=== PATIENT | male | born 1950 | race Caucasian/White ===

== ENCOUNTER 2017-05-22 09:59 | Inpatient (IN) | payer MEDICARE, OTHER, SELFPAY ==
[2017-05-22] VITALS (11 sets, daily range): BP systolic 134–200; BP diastolic 94–113; PULSE 84–139; RESP 16–24; TEMP 36.4–36.9; O2SAT 95–99; BMI 31.1; BMI 30.1
--- NOTE | 2017-05-22 10:23 | ED.DCSUM_ITS ---
- ER Visit Summary Date of Service: 05/22/17 Chief Complaint: Vertigo History of Present Illness: The patient is a 67 M who states that he was seen here yesterday after developing a sense of the room spinning upon getting out of bed. He noted vomiting. In the emergency department he had EKG, blood work , and a head CT of which those were essentially negative. He was treated with Antivert and Zofran and fluids and felt better. He was prescribed lisinopril in addition to Benicar for uncontrolled hypertension. It is unclear the line of thinking for this combination. He was referred to primary care as he is currently in transition from moving to [place] from [place]. Patient states he went home last night and his vertigo continued. He states he no longer has a headache. He states that laying flat is better but any type of movement makes him vomit. Physical Examination: 171/103 otherwise afebrile and stable Gen: Well-nourished well-developed patient appears quite nauseous holding an emesis bag Head: Normocephalic atraumatic Eyes: Perrl EOMI ENT: TMs clear no rhinorrhea moist mucous membranes Neck: Supple no lymphadenopathy no JVD nontender CVS: Regular rate rhythm no murmurs normal S1-S2 Respiratory: No distress clear to auscultation bilaterally chest nontender Abdomen: Soft nontender nondistended normal bowel sounds no masses Back: Nontender Extremity: Nontender no edema Skin: Normal color no rash Neuro: alert orientated ?3 CN II-XII intact normal strength sensation reflexes patient has nystagmus with fast component to the left Psych: Normal affect normal mood Test Results: Emergency Department Course and Treatment:Patient received a p.o. dose of IV fluids Valium and Zofran. He also received a dose of Norvasc. His blood pressure has improved down to 150/90 and symptomatically he was feeling better laying in the bed. However on exam the patient still has nystagmus has difficulty keeping his eyes open. I ambulate him and he ran into the wall on his way to the bathroom. We placed him back into the room I gave additional Valium. Basic labs are negative. Because less than 24 hours ago he had a head CT and EKG I did not repeat these. The patient will be admitted. Impression: 1. Vertigo 2. Uncontrolled hypertension This note was generated with [employer] dictation software. It may contain incorrect words, spelling, and punctuation that were not noted in review of the chart prior to signing ED Disposition - Plan for ED Patient: Chief Complaint: Dizziness Referrals: Care Physician,No Primary [Primary Care Provider] -
[2017-05-22] MEDS: diazePAM 5 MG Tablet PO ×2 (10:40→14:00)
[2017-05-22] MEDS: 0.9% Normal Saline 1,000 ML 1000 ML IV (10:40)
[2017-05-22] MEDS: Ondansetron 4 MG/2 ML Vial IV ×2 (10:40→17:28)
[2017-05-22] MEDS: amLODIPine 5 MG Tablet PO ×2 (12:12→23:51)
[2017-05-22 14:41] LABS: Absolute Lymphocyte Count 1.31 X10^3/ul (0.83-4.51); Absolute Neutrophil Count 6.8 X10^3/uL (2.0-7.7); Basophil# 0.05 X10^3/uL; Basophil% 0.6 % (0-1); Eosinophil# 0.08 X10^3/uL; Eosinophils% 0.9 % (0-5); Hematocrit 43.7 % (40-54); Hemoglobin 14.4 g/dl (13.0-16.5); Lymphocyte # 1.31 X10^3/ul (4.0); Lymphocyte % 14.8 % (19-41); Mean Corpuscular Hgb 30.2 pg (27.0-32.0); Mean Corpuscular Volume 91.6 fL (80-94); Mean Platelet Vol. 10.8 fl (6.2-12.0); Monocyte# 0.55 X10^3/uL; Monocyte% 6.2 % (0-10); Neutrophil # 6.84 X10^3/uL (2.7-7.7); Neutrophil % 77.4 % (47-70); POSITIVE COUNT NO; POSITIVE DIFFERENTIAL NO; POSITIVE MORPHOLOGY NO; Platelet Count 263 K/mm3 (150-450); RBC Distribution Width CV 13.6 % (11.6-14.6); RBC Distribution Width SD 45.1 fl (35.1-43.9); Red Blood Count 4.77 M/mm3 (4.6-6.2); White Blood Count 8.8 K/mm3 (4.4-11.0)
[2017-05-22 14:56] LABS: AST(SGOT) 15 U/L (15-37); Alanine Aminotransfer ALT/SGPT 21 U/L (12-78); Albumin, Serum 3.5 g/dL (3.4-5.0); Alkaline Phosphatase 80 U/L (45-117); Anion Gap 10 (5-15); BUN 15 mg/dL (7-18); BUN/Creat Ratio 17.9 RATIO (10-20); Calcium,Total 8.1 mg/dL (8.5-10.1); Chloride 109 mmol/L (98-107); Creatinine, Serum 0.84 mg/dL (0.70-1.30); EST Glomerular Filtration Rate 97 mL/min (>60); Est Glom Filt Rate - Afr Amer 118 mL/min (>60); Estimated Creatinine Clearance 88.11 ml/min; Globulin 3.6 g/dL (2.2-4.2); Glucose 81 mg/dL (70-110); Potassium 3.6 mmol/L (3.5-5.1); Protein, Total 7.1 g/dL (6.4-8.2); Sodium Level 142 mmol/L (136-145)
--- NOTE | 2017-05-22 16:02 | NURSING ---
MED SURG OBS VERTIGO IMAMURA
--- NOTE | 2017-05-22 16:36 | MRI_ITS ---
STUDY: MRI BRAIN WITHOUT CONTRAST REASON FOR EXAM: Male, 67 years old. Vertigo and hypertension TECHNIQUE: Standardized multiplanar fat and water weighted pulse sequences were obtained. COMPARISON: None. FINDINGS: Normal size of the ventricles and extra-axial spaces for the patient's age. Mild periventricular white matter ischemic changes without mass effect or restricted diffusion.. There are chronic ischemic changes within the right internal capsule anterior limb and left internal capsule at the genu. Normal bilateral basal ganglia. Normal thalami. There is no extra-axial fluid accumulation. Normal flow voids within the major intracranial circulation suggesting patency by spin echo criteria. Left vertebrobasilar dolichoectasia consistent with clinical history of hypertension.. The right vertebral is atrophic terminating in PICA Normal sella turcica, pituitary gland, infundibular stalk, optic chiasm and hypothalamus. Normal tectal plate and pineal gland. Normal midbrain, juan and medulla. There are acute ischemic changes within the right inferior cerebellar hemisphere Normal basal cisterns. Normal bilateral temporal bones. Normal bilateral internal auditory canals. No demonstrated orbital abnormality, within the constraints of a routine brain study. Minor mucosal thickening in the maxillary and ethmoid sinuses.. Normal calvarium and skull base. Normal visualized soft tissue structures. Normal visualized upper cervical spine. MRI/Brain without Contrast IMPRESSION: Acute ischemic infarction in the right inferior cerebellar hemisphere. Atrophy and periventricular white matter ischemic changes. Old bilateral lacunar infarcts. Electronically Signed: Beto Cruz MD at 20:28 EST , Service support ,
--- NOTE | 2017-05-22 19:06 | PCM.HP.STD ---
Problem List (1) Vertigo Status: Acute (2) Essential hypertension, benign Status: Acute (3) Intractable nausea and vomiting Status: Acute History of Present Illness Date of Admission: 05/22/17 Chief Complaint: dizziness, nausea, and vomiting. Patient is a 67 years old male who presents to ED with complaining of nausea/vomiting with dizziness for 2 days. He was seen on 05/21/17, sent home with oral Zofran but returned with persisting symptoms. He has the symptoms for 2 days, with dizziness with tilting sensation. He is doing well when he is in supine position, but symptoms worsens when he is upright. He was not able to walk with severe nausea. He is having double vision persistently, but symptoms of dizziness appears intermittent and associated with head position. CT of head was negative on 05/21. He has mild decrease in hearing, but it is unchanged. He denied of any tinnitus or headache. Past Medical History Allergies carbamazepine [From Tegretol] Allergy (Verified 05/22/17 15:33) HIGH FEVER AND RASH Home Medications: Ambulatory Orders Medication Instructions Recorded Olmesartan Medoxomil [Benicar] 40 mg PO DAILY 05/21/17 Ondansetron [Zofran Odt] 4 mg PO Q8H PRN PRN #10 tablet 05/21/17 Cholecalciferol (Vitamin D3) 3,000 unit PO DAILY 05/22/17 [Vitamin D3] Lisinopril [Prinivil] 10 mg PO DAILY 05/22/17 Magnesium Oxide [Magnesium] 400 mg PO DAILY 05/22/17 Multivitamin [Daily Multiple 1 each PO DAILY 05/22/17 Vitamin] Tadalafil [Cialis] 5 mg PO DAILY PRN 05/22/17 Surgical History: no surgical history Smoking Status: Never smoker Alcohol: None Drugs: None - *Family History Maternal History Items: No pertinent history Review of Systems Comment: ROS: In general: Patient has been in good health, denied of any constitutional symptoms, such as weight loss, or gain, fever, chills, or night sweats. Patient denied of any profound fatigue. HEENT: Unremarkable. Patient denied of any dizziness, chronic headache, blurred vision, double vision, dry mouth, or nasal congestion. CV/respiratory: There is no exertional shortness of breath, chest pain, palpitation, wheezing, cough, claudication, cold feet, or peripheral edema. GI: Patient denied any abdominal pain, nausea, vomiting, diarrhea, constipation, melena, or hematochezia. : Patient denied any significant urinary symptoms. Neurology: See HPI. No history of stroke or seizure. Psychological: Unremarkable. ?. Endocrine: Unremarkable. Musculoskeletal: Unremarkable. VTE Information - Inpt Only VTE Present on Admission: No VTE Mechan Device Prophylaxis: None VTE Pharm Prophylaxis ordered?: Yes Patient Problems: Active and Suspected Problems Vertigo (Acute) Essential hypertension, benign (Acute) Intractable nausea and vomiting (Acute) Objective: In general, patient is a well-nourished and developed adult. HEENT: Head is atraumatic, and normocephalic. Pupils are equal, round, and reactive to light and accommodations. Neck is supple. There is no lymphadenopathy, or thyromegaly. Oral mucosa is pink, and moist. There are no lesions. +nystagmus with lateral gaze. Heart: Auscultation is normal with regular rhythm and rate. There is no extra heart sounds, or murmurs. S1 and S2 are present. Point of maximal impulse is not displaced. Lungs: Lungs are clear to auscultation bilaterally. There is no wheezing, or crackles. Abdomen: Abdominal wall is non-tender, and non-distended. There is no palpable mass or organomegaly. Normoactive bowel sounds are present. Extremities: There is no cyanosis or clubbing. Peripheral pulses are palpable. There is no edema. Skin: There are no any skin discoloration or lesions. Neurological: CN II - XII are intact. Sensory and motor functions are grossly normal with no obvious deficit. Cerebellar functions are within normal range. Gait was not tested. - Physical Exam Vital Signs Temp Pulse Resp BP Pulse Ox 97.6 F L 95 16 168/97 H 97 05/22/17 16:46 05/22/17 17:47 05/22/17 16:46 05/22/17 16:46 05/22/17 16:46 Oxygen Delivery Method Room Air Weight: 212 lb 15.465 oz Body Mass Index (BMI) 30.1 Assessment/Plan Active and Suspected Problems Vertigo (Acute) Essential hypertension, benign (Acute) Intractable nausea and vomiting (Acute) Patient is a 67 years old male who presents to ED with complaining of nausea/vomiting with dizziness for 2 days. He was seen on 1/16/18, sent home with oral Zofran but returned with persisting symptoms. He has the symptoms for 2 days, with dizziness with tilting sensation. He is doing well when he is in supine position, but symptoms worsens when he is upright. He was not able to walk with severe nausea. He is having double vision persistently, but symptoms of dizziness appears intermittent and associated with head position. CT of head was negative on 05/21. He has mild decrease in hearing, but it is unchanged. He denied of any tinnitus or headache. #1 Vertigo / dizziness. Presenting symptoms are consistent with benign paroxysmal positional vertigo, but other vestibular problems cannot be excluded. MRI of head is pending. Neurology consult. PT for possible gertrudis maneuver. #2 Essential hypertension. He was on Benicar, blood pressure was not controlled. Lisinopril was added on 05/21, and amlodipine 5 mg was given in ED today. Discontinue lisinopril, continue Benicar 40 mg po qd, and continue amlodipine. Consider to increase dosage to 10 mg. #3 Intractable nausea and vomiting. Continue Zofran IV prn. VTE prophylaxis: Lovenox. GI prophylaxis: H2 yeny po. He is full code. Disposition: home in 1 to 2 days.
--- NOTE | 2017-05-22 20:45 | ECHOD_ITS ---
Reason For Study: TIA/CVA Procedure This was a 2D Doppler, Color Flow transthoracic echocardiogram. Exam performed portable in patient room. Left Ventricle Normal LV size. Mild concentric left ventricular hypertrophy. The estimated ejection fraction is 65 %. Stage I diastolic dysfunction. Right Ventricle Normal right ventricle. Atria Normal left atrium. Normal right atrium. Bubble study negative for inter-atrial shunt. Mitral Valve Trivial mitral valve insufficiency. Tricuspid Valve Trivial tricuspid valve insufficiency. Aortic Valve Normal aortic valve. Pulmonic Valve Normal pulmonic valve. Great Vessels Normal aortic root. Pericardium/Pleural No pericardial effusion. Medication Performed a rapid injection of agitated mix of 9 cc saline and 1cc air to assess for atrial septal defect. MMode/2D Measurements & Calculations LVIDd: 3.9 cm IVSd: 1.8 cm Ao root diam: 3.3 cm LVIDs: 2.6 cm LVPWd: 1.4 cm LA dimension: 4.2 cm RVDd: 2.8 cm FS: 32.6 % LAV(MOD-bp): 41.4 ml LAV(MOD-bp) Indexed: 19.3 ml/m2 LA A4 area: 13.4 cm2 RA A4 area: 12.4 cm2 LAV(MOD-sp2): 45.6 ml LAV(MOD-sp4): 33.9 ml Doppler Measurements & Calculations MV E max hany: 50.0 cm/sec Lat Peak E' Hany: 7.1 cm/sec Med Peak E' Hany: 4.2 cm/sec MV A max hany: 85.0 cm/sec E/E' lat: 7.0 E/E' med: 11.9 MV E/A: 0.59 Ao V2 max: 127.6 cm/sec LV V1 max: 90.2 cm/sec PA V2 max: 155.2 cm/sec Ao max P.5 mmHg LV V1 max P.3 mmHg Interpretation Summary Mild concentric left ventricular hypertrophy. The estimated ejection fraction is 65 %. Stage I diastolic dysfunction. Bubble study negative for inter-atrial shunt Ordering Physician: Ej Lyle Referring Physician: Kathe PCP Performed By: Emma Davidson RDCS
[2017-05-22] MEDS: Famotidine 20 MG Tablet PO (23:51)
[2017-05-22] MEDS: Losartan Potassium 100 MG Tablet PO (23:51)
[2017-05-23] VITALS (13 sets, daily range): BP systolic 155–169; BP diastolic 90–120; PULSE 77–116; RESP 16–18; TEMP 36.2–36.9; O2SAT 93–98; BMI 30.1
[2017-05-23 00:17] LABS: Magnesium 2.2 mg/dL (1.6-2.6); Thyroid Stim Hormone (TSH) 1.94 uIU/mL (0.358-3.74)
[2017-05-23 06:44] LABS: Absolute Lymphocyte Count 1.82 X10^3/ul (0.83-4.51); Absolute Neutrophil Count 5.7 X10^3/uL (2.0-7.7); Basophil# 0.04 X10^3/uL; Basophil% 0.5 % (0-1); Eosinophil# 0.22 X10^3/uL; Eosinophils% 2.5 % (0-5); Hematocrit 44.5 % (40-54); Hemoglobin 14.7 g/dl (13.0-16.5); Lymphocyte # 1.82 X10^3/ul (4.0); Lymphocyte % 20.9 % (19-41); Mean Corpuscular Hgb 30.2 pg (27.0-32.0); Mean Corpuscular Volume 91.4 fL (80-94); Mean Platelet Vol. 10.8 fl (6.2-12.0); Monocyte# 0.89 X10^3/uL; Monocyte% 10.2 % (0-10); Neutrophil # 5.71 X10^3/uL (2.7-7.7); Neutrophil % 65.8 % (47-70); Platelet Count 272 K/mm3 (150-450); RBC Distribution Width CV 13.7 % (11.6-14.6); RBC Distribution Width SD 45.2 fl (35.1-43.9); Red Blood Count 4.87 M/mm3 (4.6-6.2); White Blood Count 8.7 K/mm3 (4.4-11.0)
[2017-05-23 06:56] LABS: Anion Gap 10 (5-15); BUN 13 mg/dL (7-18); BUN/Creat Ratio 16.7 RATIO (10-20); Calcium,Total 7.9 mg/dL (8.5-10.1); Chloride 106 mmol/L (98-107); Cholesterol 190 mg/dL (200); Creatinine, Serum 0.78 mg/dL (0.70-1.30); EST Glomerular Filtration Rate 106 mL/min (>60); Est Glom Filt Rate - Afr Amer 128 mL/min (>60); Estimated Creatinine Clearance 74.01 ml/min; Glucose 71 mg/dL (70-110); High Density Lipoprotein 38 mg/dL; Potassium 3.3 mmol/L (3.5-5.1); Sodium Level 139 mmol/L (136-145); Triglycerides 66 mg/dL; Very Low Density Lipoprotein 13 mg/dL (5-40)
[2017-05-23 07:00] LABS: POSITIVE COUNT NO; POSITIVE DIFFERENTIAL NO; POSITIVE MORPHOLOGY NO
--- NOTE | 2017-05-23 07:15 | MRI_ITS ---
STUDY: MRA NECK WITHOUT CONTRAST REASON FOR EXAM: Male, 67 years old. cva, DIZZY,DOUBLE VISION. TECHNIQUE: Source images were obtained, MIPs were performed. The study was performed unenhanced. COMPARISON: None. FINDINGS: RIGHT CAROTID ARTERIES: Normal right common carotid artery (CCA). There is mild atherosclerotic plaque formation with minimal narrowing of the right carotid bulb. There is extensive atherosclerotic plaque formation of the origin of the right internal carotid artery with an estimated stenosis of greater than 70%. Normal visualized cervical portion of the right internal carotid artery. Normal origin of the right external carotid artery (ECA). LEFT CAROTID ARTERIES: Normal left common carotid artery (CCA). There is mild atherosclerotic plaque formation with minimal narrowing of the left carotid bulb. There is moderate atherosclerotic plaque formation of the origin of the left internal carotid artery with an estimated stenosis of 50-69% stenosis. Normal visualized cervical portion of the left internal carotid artery. Normal origin of the left external carotid artery (ECA). VERTEBRAL ARTERIES: There is antegrade flow within the bilateral vertebral arteries with a small right vertebral artery, and a dominant left vertebral artery. There is nonvisualization of the distal right vertebral artery. MRI/MRA Neck without Contrast IMPRESSION: Estimated 50-69% stenosis on the right. Estimated greater than 70% stenosis on the left. Nonvisualization of the distal right vertebral artery. Further evaluation with CTA can be obtained. Electronically Signed: Manuela Godfrey MD at 13:00 EST Tel , Service support ,
--- NOTE | 2017-05-23 07:15 | MRI_ITS ---
STUDY: MRA OF THE HEAD WITHOUT CONTRAST REASON FOR EXAM: Male, 67 years old. cva. TECHNIQUE: 3-D [id number] (TOF) imaging was performed with MIPs. The study was performed unenhanced. COMPARISON: None. FINDINGS: Normal bilateral petrous carotid arteries. Normal right cavernous carotid artery with a normal supraclinoid bifurcation. Normal left cavernous carotid artery with a normal supraclinoid bifurcation. Normal right A1 segments of the anterior cerebral artery. Normal left A1 segments of the anterior cerebral artery. Normal intact anterior communicating artery (ACOM). Normal bilateral A2 segments of the anterior cerebral arteries. Normal right M1 and M2 segments of the middle cerebral arteries, with a normal M1 bifurcation. Normal left M1 and M2 segments of the middle cerebral arteries, with a normal M1 bifurcation. There is elongation with tortuosity and diffuse enlargement consistent with dolichoectasia. There is a small filling defect at the distal left vertebral artery (best seen on axial image #48 series 2). There is nonvisualization of the distal right vertebral artery. There is a small right vertebral artery. Normal bilateral P1, P2 and visualized P3 segments of the posterior cerebral arteries. There is no demonstrated aneurysm of the [place]. There is no major vessel occlusion or hemodynamically significant stenosis. There is no demonstrated abnormality of the visualized brain. MRI/MRA Head ONLY without Contrast IMPRESSION: Nonvisualization of the distal right vertebral artery. Small filling defect within distal left vertebral artery. Further evaluation with CTA can be obtained. Electronically Signed: Manuela Godfrey MD at 12:57 EST Tel , Service support ,
[2017-05-23] MEDS: Losartan Potassium 100 MG Tablet PO (08:16)
[2017-05-23] MEDS: Aspirin 81 MG TAB.CHEW PO (08:16)
[2017-05-23] MEDS: Famotidine 20 MG Tablet PO ×2 (08:20→21:35)
[2017-05-23] MEDS: Magnesium Oxide 400 MG Tablet PO (08:20)
[2017-05-23] MEDS: amLODIPine 5 MG Tablet PO (08:20)
[2017-05-23] MEDS: Enoxaparin 40 MG/0.4 ML Syringe SC (08:22)
--- NOTE | 2017-05-23 10:06 | CASEMGMT ---
This RN CM to bedside to complete CM assessment and pt is out of the dept for testing at this time. Will attempt again later. SStaten RN CM
--- NOTE | 2017-05-23 12:52 | PCM.CONS.GEN ---
Problem List (1) Dizziness Status: Acute (2) Stroke Status: Acute Qualifiers: CVA mechanism: unspecified Qualified Code(s): I63.9 - Cerebral infarction, unspecified Reason for Consult Date of Consultation: 05/23/17 Reason for Consultation: stroke History of Present Illness: The patient is a 67 year old CM with PMH uncontrolled HTN admitted with dizziness. Per patient his dizziness started about 3 days ago, he felt the whole room was spinning, had wobbliness, difficulty in walking, was running into the wall and things, went to the urgent care but was sent home after treating with meclizine, complaints of nausea, denies any READ, visual disturbances, focal motor weakness or sensory loss. He was not an ivtpa candidate on admission as he was out of the window. MRI brain following admission showed acute right inferior cerebellar stroke and right MCP stroke. MRA head/neck right 50-69% stenosis and left ICA > 70% stenosis, with ? right distal vertebral artery filling defect. Per patient he lives alone, denies any falls, does not use cane or walker to ambulate, does drive and does not need any assistance for his ADLs. Per patient he did not take ASA every day. [] Past Medical History Allergies carbamazepine [From Tegretol] Allergy (Verified 05/22/17 15:33) HIGH FEVER AND RASH Home Medications: Ambulatory Orders Medication Instructions Recorded Olmesartan Medoxomil [Benicar] 40 mg PO DAILY 05/21/17 Ondansetron [Zofran Odt] 4 mg PO Q8H PRN PRN #10 tablet 05/21/17 Cholecalciferol (Vitamin D3) 3,000 unit PO DAILY 05/22/17 [Vitamin D3] Magnesium Oxide [Magnesium] 400 mg PO DAILY 05/22/17 Multivitamin [Daily Multiple 1 each PO DAILY 05/22/17 Vitamin] Tadalafil [Cialis] 5 mg PO DAILY PRN 05/22/17 Acetaminophen [Tylenol Tablet] 650 mg PO Q6H PRN PRN tablet 05/24/17 Amlodipine [Norvasc] 10 mg PO DAILY tablet 05/24/17 Aspirin [Aspirin, Baby] 81 mg PO DAILY@0800 tab.chew 05/24/17 Atorvastatin Calcium [Lipitor] 40 mg PO QHS tablet 05/24/17 Clopidogrel Bisulfate [Plavix] 75 mg PO DAILY tablet 05/24/17 Hydrochlorothiazide [Hctz] 25 mg PO DAILY tablet 05/24/17 Mag Hydrox/Al Hydrox/Simeth 30 ml PO Q6H PRN PRN udc 05/24/17 [Mylanta II] Metoprolol Tartrate [Lopressor 25 mg PO BID tablet 05/24/17 (beta yeny)] Zolpidem Tartrate [Ambien] 5 mg PO QHS PRN PRN tablet 05/24/17 Surgical History: no surgical history Lives: Alone Smoking Status: Never smoker Alcohol: None Drugs: None - *Family History Maternal History Items: No pertinent history Review of Systems Constitutional: Reports: - - complete ROS negative except as documented in HPI - Physical Exam General: Alert, Oriented x3, Cooperative HEENT: Atraumatic, PERRLA, EOMI, Normocephalic Neck: Supple, No JVD, Negative Carotid Bruits Lungs: Clear to auscultation, Normal air movement Cardiovascular: Regular rate, No murmurs Abdomen: Bowel Sounds Present, Soft, Non Tender Extremities: No edema, Capillary Refill Less than 3 Seconds Skin: No rashes, No breakdown Musculoskeletal: No Tenderness to Palpation of Joints or Extremities Neurological: - - consious, alert, AoAx3, CN 2-12 grossly intact, power 5/5 all 4 extremities, no sensory loss, right sided cerebellar signs +, gait deferred, Reflexes + B/L B/S/T/K/A, NIHSS 2 at present Psych/Mental Status: Normal Affect, Appropriate Vital Signs Temp Pulse Resp BP Pulse Ox 98.5 F 110 H 18 159/102 H 96 05/23/17 08:13 05/23/17 11:23 05/23/17 08:13 05/23/17 08:13 05/23/17 08:13 Oxygen Delivery Method Room Air Weight: 96.6 kg Body Mass Index (BMI) 30.1 Intake and Output for Last 24 Hours 05/21/17 05/22/17 05/23/17 23:59 23:59 23:59 Intake Total 180 / 180 Output Total 450 / 450 Balance -270 / -270 Laboratory Tests Past 24 Hrs 05/23/17 05/23/17 05:40 05:40 WBC 8.7 RBC 4.87 Hgb 14.7 Hct 44.5 MCV 91.4 MCH 30.2 MCHC 33.0 RDW 13.7 RDW Differential 45.2 H Plt Count 272 MPV 10.8 Immature Gran % (Auto) 0.100 Neut % (Auto) 65.8 Lymph % (Auto) 20.9 [place] % (Auto) 10.2 H Eos % (Auto) 2.5 Baso % (Auto) 0.5 Absolute Neuts (auto) 5.7 Absolute Lymphs (auto) 1.82 Total Counted Not Reportable Sodium 139 Potassium 3.3 L Chloride 106 Carbon Dioxide 23.0 Anion Gap 10 BUN 13 Creatinine 0.78 Estim Creat Clear Calc 74.01 Est GFR (MDRD) Af Amer 128 Est GFR (MDRD) Non-Af 106 BUN/Creatinine Ratio 16.7 Glucose 71 Calcium 7.9 L Triglycerides 66 Cholesterol 190 LDL Cholesterol 139 H VLDL Cholesterol 13 HDL Cholesterol 38 L Assessment/Plan The patient is a 67 year old CM with PMH uncontrolled HTN admitted with dizziness. Per patient his dizziness started about 3 days ago, he felt the whole room was spinning, had wobbliness, difficulty in walking, was running into the wall and things, went to the urgent care but was sent home after treating with meclizine, complaints of nausea, denies any READ, visual disturbances, focal motor weakness or sensory loss. He was not an ivtpa candidate on admission as he was out of the window. MRI brain following admission showed acute right inferior cerebellar stroke and right MCP stroke. MRA head/neck right 50-69% stenosis and left ICA > 70% stenosis, with ? right distal vertebral artery filling defect. Per patient he lives alone, denies any falls, does not use cane or walker to ambulate, does drive and does not need any assistance for his ADLs. Per patient he did not take ASA every day. Impression Acute right inferior cerebellar and right MCP infarct- embolic possible vs Plan -Recommend ASA 81 mg PO once daily and Plavix 75 mg PO q hs for 1 month, dual AP for 1 month then switch to single AP. Bleeding risks discussed in detail with the patient. -Recommend Lipitor 80 mg PO q hs -MRI brain and MRA head/neck images reviewed-right 50-69% stenosis and left ICA > 70% stenosis, with ? right distal vertebral artery filling defect. -Recommend CTA head/neck -Await TTE -LDL-139, await HbA1c -Recommend 30 day event recorder as outpatient -Recommend Vascular surgery consult -Recommend PT/OT -Goal BP < 130/80 mmHg and Hba1c < 7% -GI/VT prophylaxis -Follow up with Neurology as outpatient in 2-3 weeks after discharge -Please call with questions if any -Thank you for allowing us to participate in patient's care and management I spent 60 minutes taking history, doing physical examination, reviewing medical records, coordinating care and counseling the patient. Code Visit Inpatient E&M: 18920 Init Hosp L3
--- NOTE | 2017-05-23 13:24 | PCM.PN.HOSP ---
Patient Problems: Active and Suspected Problems Vertigo (Acute) Essential hypertension, benign (Acute) Intractable nausea and vomiting (Acute) Dizziness (Acute) Stroke (Acute) Subjective: Patient was admitted yesterday with dizziness, vertigo, difficulty in walking and drifting, incoordination for last 3 days. 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 MRA shows right 50-69% stenosis in left ICA more than 70%. Radiology called for right distal vertebral artery filling defect/thrombosis. Vitals/I&O's: Vital Signs Temp Pulse Resp BP Pulse Ox 98.3 F 110 H 18 157/94 H 93 05/23/17 12:58 05/23/17 12:58 05/23/17 12:58 05/23/17 12:58 05/23/17 12:58 Oxygen Delivery Method Room Air Weight: 212 lb 15.465 oz Body Mass Index (BMI) 30.1 Intake and Output for Last 24 Hours 05/21/17 05/22/17 05/23/17 23:59 23:59 23:59 Intake Total 180 / 180 Output Total 450 / 450 Balance -270 / -270 General: Alert, Oriented x3, Cooperative HEENT: Atraumatic, PERRLA, EOMI, Normocephalic Neck: Supple, No JVD, Negative Carotid Bruits Lungs: Clear to auscultation, Normal air movement, No rhonchi, No wheeze, No rales Cardiovascular: Regular Rhythm, Normal S1, Normal S2, No murmurs, Tachycardic - Sinus tachycardia on the monitor heart rate is 90s to 100s per minute Abdomen: Bowel Sounds Present, Soft, Non Tender Extremities: No edema, Capillary Refill Less than 3 Seconds Skin: No rashes, No breakdown Musculoskeletal: No Tenderness to Palpation of Joints or Extremities Neurological: Cranial nerves II-XII grossly intact, Deep Tendon Reflexes 2+/4 and Symmetrical, Motor Exam 5/5 strength throughout, - - Patient has gross gait ataxia. Cerebellar signs are positive for dysmetria, dysdiakinesia and heel candelario test on right side. NIHSS 2 Psych/Mental Status: Normal Affect, Appropriate Laboratory Results 05/23/17 05:40: WBC 8.7, RBC 4.87, Hgb 14.7, Hct 44.5, MCV 91.4, MCH 30.2, MCHC 33.0, RDW 13.7, RDW Differential 45.2 H, Plt Count 272, MPV 10.8, Immature Gran % (Auto) 0.100, Neut % (Auto) 65.8, Lymph % (Auto) 20.9, Mcduffie % (Auto) 10.2 H, Eos % (Auto) 2.5, Baso % (Auto) 0.5, Absolute Neuts (auto) 5.7, Absolute Lymphs (auto) 1.82, Total Counted Not Reportable 05/23/17 05:40: Sodium 139, Potassium 3.3 L, Chloride 106, Carbon Dioxide 23.0, Anion Gap 10, BUN 13, Creatinine 0.78, Estim Creat Clear Calc 74.01, Est GFR (MDRD) Af Amer 128, Est GFR (MDRD) Non-Af 106, BUN/Creatinine Ratio 16.7, Glucose 71, Calcium 7.9 L, Triglycerides 66, Cholesterol 190, LDL Cholesterol 139 H, VLDL Cholesterol 13, HDL Cholesterol 38 L Current Medications Acetaminophen (Tylenol) 650 mg PO Q6H PRN PRN PRN Reason: Mild Pain (1-3)/Temp > 100.7 F Al Hydroxide/Mg Hydroxide (Mylanta Ii) 30 ml PO Q6H PRN PRN PRN Reason: Gastric burning Amlodipine Besylate (Norvasc) 5 mg PO DAILY [facility] Last Admin: 05/23/17 08:20 Dose: 5 mg Aspirin (Aspirin, Baby) 81 mg PO DAILY@0800 [facility] Last Admin: 05/23/17 08:16 Dose: 81 mg Atorvastatin Calcium (Lipitor) 80 mg PO QHS [facility] Enoxaparin Sodium (Lovenox) 40 mg SC DAILY@1000 [facility] Last Admin: 05/23/17 08:22 Dose: 40 mg Famotidine (Pepcid) 20 mg PO BID [facility] Last Admin: 05/23/17 08:20 Dose: 20 mg Hydralazine HCl (Apresoline) 10 mg IV Q4H PRN PRN PRN Reason: SBP > 160 Losartan Potassium (Cozaar) 100 mg PO DAILY [facility] Last Admin: 05/23/17 08:16 Dose: 100 mg Magnesium Hydroxide (Milk Of Magnesia) 30 ml PO DAILY PRN PRN PRN Reason: Constipation Magnesium Oxide (Mag-Ox 400) 400 mg PO DAILY [facility] Last Admin: 05/23/17 08:20 Dose: 400 mg Melatonin (Melatonin) 10 mg PO QHS PRN PRN Reason: INSOMNIA Ondansetron HCl (Zofran) 4 mg IV Q8H PRN PRN PRN Reason: NAUSEA Last Admin: 05/22/17 17:28 Dose: 4 mg Sodium Chloride () 5 - 30 ml IV UD PRN PRN Reason: SALINE FLUSH Zolpidem Tartrate (Ambien (Generic)) 5 mg PO QHS PRN PRN PRN Reason: INSOMNIA Assessment/Plan Active and Suspected Problems Vertigo (Acute) Essential hypertension, benign (Acute) Intractable nausea and vomiting (Acute) Dizziness (Acute) Stroke (Acute) Patient is a 67 years old male who presents to ED with complaining of nausea/vomiting with dizziness for 3 days. He was seen on 05/21/17, sent home with oral Zofran but returned with persisting symptoms. He has the symptoms for 2 days, with dizziness with tilting sensation. He is doing well when he is in supine position, but symptoms worsens when he is upright. He was not able to walk with severe nausea. He is having double vision persistently, but symptoms of dizziness appears intermittent and associated with head position. CT of head was negative on 05/21. He has mild decrease in hearing, but it is unchanged. He denied of any tinnitus or headache. 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 MRI brain showed acute right inferior cerebellar stroke and right MCP stroke. MRA head/neck right 50-69% stenosis and left ICA > 70% stenosis and nonvisualization of distal right vertebral artery, thrombosis as per radiologist. CT angiogram neck and head ordered to further confirm. 2D echo is ordered. Fasting lipid profile shows LDL 139, HDL 38. TSH 1.94. Follow stroke protocol with NIH stroke scale, aspirin, Plavix; dual antiplatelet agent statin, A1c. Patient was recommended 30 day event monitor. Discussed with the neurologist, Dr. Dempsey. PT and OT recommended SNF placement. #2 Essential hypertension. He was on Benicar, blood pressure was not controlled. Lisinopril was added on 05/21, and amlodipine 5 mg was given in ED. Discontinue lisinopril, continue Benicar 40 mg po qd, and continue amlodipine. Blood pressure is in permissive zone. #3 Intractable nausea and vomiting. Continue Zofran IV prn. DVT prophylaxis: Patient is on Lovenox. This note was generated with FXT[employer] dictation software. Every effort was made to ensure accuracy, however computerized research software engineer mistakes may be persist. Code Visit Inpatient E&M: 30765 Subs Hosp L2
--- NOTE | 2017-05-23 13:36 | CT_ITS ---
STUDY: CTA NECK WITH CONTRAST REASON FOR EXAM: Male, 67 years old. History of stroke. RADIATION DOSAGE (If Supplied By Facility): CTDIvol = ( 28.16 ) mGy, DLP = ( 1514.26 ) mGycm TECHNIQUE: CT angiography with multi-detector data acquisition was performed from the aortic arch to the skull base following intravenous administration of 100CC ml of Isovue 370 contrast. MIP images were reconstructed from the axial data set. Post-processing of the angiographic images was performed, with multiplanar reformation and 3D reconstruction. Individualized dose optimization techniques were used for this CT. COMPARISON: Comparison is made with prior MRA examination done earlier in the day. FINDINGS: AORTIC ARCH: There is atherosclerotic calcific plaque formation of the aortic arch and great vessels arising from the aortic arch, without a hemodynamically significant stenosis. There is a bovine origin of the great vessels with a common origin of the brachiocephalic and left common carotid artery. Normal origin of the left subclavian artery. RIGHT CAROTID ARTERIES: Normal right common carotid artery (CCA). Normal right common carotid bulb. Normal origin of the right internal carotid (ICA) artery without a hemodynamically significant stenosis. Normal visualized cervical portion of the right internal carotid artery. Normal origin of the right external carotid artery (ECA). LEFT CAROTID ARTERIES: Normal left common carotid artery (CCA). Normal left common carotid bulb. Normal origin of the left internal carotid (ICA) artery without a hemodynamically significant stenosis. Normal visualized cervical portion of the left internal carotid artery. Normal origin of the left external carotid artery (ECA). VERTEBRAL ARTERIES: There is enhancement within the bilateral vertebral arteries with a small right vertebral artery, and a dominant left vertebral artery. Ectasia of the left vertebral artery. CT/CTA Neck W/WO Contrast IMPRESSION: Ectasia of the left vertebral artery with calcific plaque in its distal portion. Electronically Signed: Lazarus Molina MD at 14:56 EST Tel [phone], Service support ,
--- NOTE | 2017-05-23 13:36 | CT_ITS ---
STUDY: CTA OF THE BRAIN REASON FOR EXAM: Male, 67 years old. History of stroke. RADIATION DOSAGE (If Supplied By Facility): CTDIvol = ( 28.16 ) mGy, DLP = ( 1514.26 ) mGycm TECHNIQUE: CT angiography was performed with a multi-detector CT scanner. Data acquisition was obtained from the skull base through the vertex following intravenous administration of 100 ml of Isovue 370. MIP images were reconstructed from the axial data set. Post-processing of the angiographic images was performed, with multiplanar reformation and 3D reconstruction. Individualized dose optimization techniques were used for this CT. COMPARISON: Comparison is made with prior MRA of the brain done earlier today. FINDINGS: Normal bilateral petrous carotid arteries. There is calcified plaque formation of the right cavernous carotid artery, without a cross-sectional luminal stenosis. There is calcified plaque formation of the left cavernous carotid artery, without a cross-sectional luminal stenosis. Normal right A1 segments of the anterior cerebral artery. Normal left A1 segments of the anterior cerebral artery. Normal intact anterior communicating artery (ACOM). Normal bilateral A2 segments of the anterior cerebral arteries. Normal right M1 and M2 segments of the middle cerebral arteries, with a normal M1 bifurcation. Normal left M1 and M2 segments of the middle cerebral arteries, with a normal M1 bifurcation. Normal right posterior communicating artery (PCOM). Normal left posterior communicating artery (PCOM). Normal bilateral vertebral arteries. Normal basilar artery with a normal basilar bifurcation. The visualized bilateral superior cerebellar (SCA) arteries are normal. Normal bilateral P1, P2 and visualized P3 segments of the posterior cerebral arteries. There is dilatation and ectasia of the left vertebral artery. The right vertebral artery is small in caliber. CT/CTA Head W/WO Contrast IMPRESSION: Ectasia and dilatation of the left vertebral artery and dolichoectasia of the basilar tip. Atherosclerotic calcification of the cavernous portions of the internal carotid arteries bilaterally. Electronically Signed: Lazarus Molina MD at 14:53 EST Tel [phone], Service support ,
--- NOTE | 2017-05-23 13:55 | CHAPLAIN ---
Type of Pastoral Visit _x__ Initial Visit ___ Follow-up Visit ___ On-call Visit ___ General Patient Visit ___ Spiritual Assessment ___ Family Conference ___ Bereavement ___ Rapid Response ___ Code Blue ___ Other (describe below) Pastoral Care Referral From _x__ Patient ___ Family ___ Nurse ___ Physician ___ Chandelier Maker ___ Laundry Operator ___ Other (describe below) Sacrament/Intervention ___ Active listening ___ Anointing ___ Uatsdin ___ Bereavement ___ Communion ___ Altagracia exploration ___ ___ Life review _x__ Prayer ___ Reconciliation ___ Sacrament of Sick _x__ Supportive presence ___ Wedding ___ Other (describe below) Pastoral Comments patient was resting but awoke to my footsteps; pt said that he is not connected to any altagracia tradition but that he would like someone to pray for him; prayer was given; pt then requested that the door be closed and he would try to sleep; left the room and door was closed for pt
--- NOTE | 2017-05-23 14:04 | CASEMGMT ---
Face to Face with patient for initial transition planning/care coordination assessment. RN MEREDITH introduced self and role at [facility], pt voices understanding and consents to assessment at this time. Pt sitting up in bed in no distress at this time. Pt A/O x4 at this time and answers all questions appropriately at this time. Care providers, pharmacy, and demographics verified. See attached link. Pt voices no further concerns/needs at this time. Advised pt to ask for CM to any further questions/concerns/needs arise, voices understanding. Per physical therapy, they are recommending rehab. Referral to [facility], voices understanding. PLAN: TBD [facility]
[2017-05-23] MEDS: Clopidogrel Bisulfate 75 MG Tablet PO (14:26)
--- NOTE | 2017-05-23 15:38 | CASEMGMT ---
Addendum entered by Dasia Gonzales 05/24/17 11:18: SW spoke with Yaz and patient's Medicare is in fact primary. SW spoke with patient and he would like to go to the rehab unit. SW let Yaz in rehab know as well as Dr Motley. Patient will be d/c today to [facility] 4th floor rehab unit. Plan: [facility] 4th floor rehab unit. Dasia YOST Original Note: Therapy spoke with SW and said patient would be a good rehab candidate. SW mentioned this to Dr Dempsey and he felt he would be a good candidate also. MICHELLE called Yaz with referral and told her that not sure if Dr Dempsey accepted him. SW also mentioned patient patient's insurance, making sure his MCR is first as he is still working. SW went to talk with patient about it, but he is sleeping. SW to check back in with patient. Dasia SKY CAPTURE MANAGER
[2017-05-23] MEDS: 0.9% NaCl Peripheral Flush Adult/Peds IV (18:49)
[2017-05-23] MEDS: Atorvastatin Calcium 80 MG Tablet PO (21:36)
[2017-05-23] MEDS: hydroCHLOROthiazide 25 MG Tablet PO (22:40)
[2017-05-24] VITALS (13 sets, daily range): BP systolic 146–162; BP diastolic 80–107; PULSE 104–130; RESP 14–19; TEMP 36.4–36.9; O2SAT 94–98; BMI 30.1
[2017-05-24 06:42] LABS: Anion Gap 13 (5-15); BUN 13 mg/dL (7-18); BUN/Creat Ratio 14.3 RATIO (10-20); Calcium,Total 9.2 mg/dL (8.5-10.1); Chloride 103 mmol/L (98-107); Creatinine, Serum 0.91 mg/dL (0.70-1.30); EST Glomerular Filtration Rate 88 mL/min (>60); Est Glom Filt Rate - Afr Amer 107 mL/min (>60); Estimated Creatinine Clearance 81.33 ml/min; Glucose 89 mg/dL (70-110); Potassium 3.7 mmol/L (3.5-5.1); Sodium Level 137 mmol/L (136-145)
[2017-05-24 07:24] LABS: Hemoglobin A1c 5.4 % (4.2-6.3)
[2017-05-24] MEDS: Aspirin 81 MG TAB.CHEW PO (09:14)
[2017-05-24] MEDS: Clopidogrel Bisulfate 75 MG Tablet PO (09:14)
[2017-05-24] MEDS: amLODIPine 10 MG Tablet PO (09:15)
[2017-05-24] MEDS: Magnesium Oxide 400 MG Tablet PO (09:15)
[2017-05-24] MEDS: Famotidine 20 MG Tablet PO (09:15)
[2017-05-24] MEDS: hydroCHLOROthiazide 25 MG Tablet PO (09:15)
[2017-05-24] MEDS: Losartan Potassium 100 MG Tablet PO (09:15)
[2017-05-24] MEDS: Enoxaparin 40 MG/0.4 ML Syringe SC (09:16)
[2017-05-24] MEDS: 0.9% NaCl Peripheral Flush Adult/Peds IV (09:24)
[2017-05-24] MEDS: Ondansetron 4 MG/2 ML Vial IV (09:24)
--- NOTE | 2017-05-24 11:08 | PCM.DC ---
- Discharge Diagnoses Current Active Problems: Current Active and Chronic Problems Vertigo (Acute) Essential hypertension, benign (Acute) Intractable nausea and vomiting (Acute) Dizziness (Acute) Stroke (Acute) You will use the following diet at home:: Cardiac Allergies/Adverse Reactions: Allergies carbamazepine [From Tegretol] Allergy (Verified 05/22/17 15:33) HIGH FEVER AND RASH Medications to take at Discharge Olmesartan Medoxomil [Benicar] 40 mg PO DAILY 05/21/17 Ondansetron [Zofran Odt] 4 mg PO Q8H PRN PRN #10 tablet 05/21/17 Cholecalciferol (Vitamin D3) [Vitamin D3] 3,000 unit PO DAILY 05/22/17 Magnesium Oxide [Magnesium] 400 mg PO DAILY 05/22/17 Multivitamin [Daily Multiple Vitamin] 1 each PO DAILY 05/22/17 Tadalafil [Cialis] 5 mg PO DAILY PRN 05/22/17 Acetaminophen [Tylenol Tablet] 650 mg PO Q6H PRN PRN tablet 05/24/17 Amlodipine [Norvasc] 10 mg PO DAILY tablet 05/24/17 Aspirin [Aspirin, Baby] 81 mg PO DAILY@0800 tab.chew 05/24/17 Atorvastatin Calcium [Lipitor] 40 mg PO QHS tablet 05/24/17 Clopidogrel Bisulfate [Plavix] 75 mg PO DAILY tablet 05/24/17 Hydrochlorothiazide [Hctz] 25 mg PO DAILY tablet 05/24/17 Mag Hydrox/Al Hydrox/Simeth [Mylanta II] 30 ml PO Q6H PRN PRN udc 05/24/17 Metoprolol Tartrate [Lopressor (beta yeny)] 25 mg PO BID tablet 05/24/17 Zolpidem Tartrate [Ambien] 5 mg PO QHS PRN PRN tablet 05/24/17 Primary Care Physician: Care Physician,No Primary [Primary Care Provider] - Please follow up with your Primary Care Physician in: in 2 week Please Follow Up With: José Dempsey MD When: in 2-3 weeks
[2017-05-24] MEDS: Metoprolol Tartrate 25 MG Tablet PO (11:57)
--- NOTE | 2017-05-24 13:06 | PCM.RU.PYE ---
Admission Information Status Changes from Prescreening?: No changes Identified Actual Problem List:: Mobility Impaired, Self Care Deficit, BP, Hypertension Potential Problem List:: DVT, Bleeding, Infection, UTI, Aspiration, Falls, Skin Integrity, Depression Risk of Complications DVT: LMWH, SOFIA Hose, Sequential Compression Device Bleeding: Monitor Lab Values, Nursing to Teach Precautions for anti-coagulation therapy., Wound, if applicable, to be assessed every shift., Stroke patients assessed for lethargy or change in status. Infection: Clinical Staff to Monitor for S/S of infection:, S/S of infection include fever, redness, warmth, etc. Urinary Tract Infection: Monitor for frequency, burning, discomfort, or incontinence., Nursing will obtain urine sample for urinalysis and C&S when ordered. Aspiration: Clinical staff will monitor for coughing, drooling, congestion., Speech will evaluate swallowing and dsyphasia., Nursing will monitor patient swallowing during meals. Falls: Patient will be evaluated for Fall Precautions, Patient will be placed on Fall Precautions as indicated per protocol. Skin Breakdown: Nursing will assess skin daily using assessment tool., Nursing will place on Skin Breakdown Precautions as indicated. Pain: Clinical staff will assess patient's pain level per protocol., Medications will be given, if needed, and the pain level reassessed., Other methods: Massage, distraction, decrease stimulus, etc. used PRN. Plan of Care Patient requires physician specializing in physical medicine and rehab oversight to provide close medical supervision of rehab issues including: Pain Management, Sleep Problems, Bowel and Bladder, Medical and co-morbidity Management, DVT prophylaxis, Rehabilitation Leadership, Coordination of treatment team Patient needs Physical Therapy: For a minimum of 1 hour, At least 5 out of 7 days Patient needs Physical Therapy to improve:: Mobility, Mobility, Mobility, Strengthening, Transfers, Stretching, ROM, Endurance, Stairs, Gait, Balance Patient needs Occupational Therapy: For a minimum of 1 hour, At least 5 out of 7 days Patient needs Occupational Therapy to improve ADL's incl.: Eating, Grooming, Bathing, Dressing, Toileting, Toilet transfers, Community Reintegration, Higher functioning activities, Household tasks, Adaptive Equipment, Splinting, Other activities as determined Patient requires speech therapy: For a minimum of 1 hour, At least 5 out of 7 days Patient requires speech therapy for: Swallowing, Cognition, Language Skills, Compensatory Strategies Patient requires 26/11 Rehabilitation Nursing for: Pain Issues, Identifying and preventing risk factors, Monitoring and reporting current medical conditions, Assisting with ambulation, transfer, and all ADL's, Teaching patients about disease process and medications, Family teaching, Providing safe environment, Bowel and Bladder Issues, Skin integrity, Medication Management Patient needs Commercial Loan Manager/ Case Management for: Discharge Planning, Arranging Home Equipment or Services, Family Interventions Patient needs Dietary and Nutrition Services for: Adequate Nutrition, Nutritional Supplements, Nutritional Education Goals Patient will remain: free from falls, or injury at time of discharge. Patient will perform bed mobility at: MOD I level of assist. Patient will complete transfers from bed to chair at: MOD I level of assist. Patient will ambulate: 100 feet, with MOD I assist, with LRD Patient will complete upper body dressing at: MOD I level of assist. Patient will complete lower body dressing at: MOD I level of assist. Patient will complete toileting at: MOD I level of assist. Patient will perform bathing at: MOD I level of assist. Patient will complete grooming at: MOD I level of assist. Patient will complete home management skills at: MOD I level of assist. Patient will achieve: 12 stairs, at MOD I assist Patient will have pain level of: of 3 or less Patient's skin will: remain intact, free from infection. Patient will receive: adequate nutrition. Discharge Planning Estimated Length of stay (days): 10 Anticipated D/C Destination: Home Was Preadmission Assessment Accurate?: Yes
--- NOTE | 2017-05-24 13:07 | PCM.HP.STD ---
Problem List (1) Dizziness Status: Acute (2) Stroke Status: Acute Qualifiers: CVA mechanism: unspecified Qualified Code(s): I63.9 - Cerebral infarction, unspecified History of Present Illness Date of Admission: 05/24/17 Chief Complaint: Debility post stroke The patient is a 67 year old CM with PMH uncontrolled HTN, recently diagnosed stroke who is being admitted to [facility] with debility post acute right inferior cerebellar stroke, for > 3 hrs therapy daily with the aim of returning back to his home at or near his prior level of functional independence. Patient was admitted to [facility] with dizziness on 05/22/2017. Per patient his dizziness started about 3 days prior to admission, he felt the whole room was spinning, had wobbliness, difficulty in walking, was running into the wall and things, went to the urgent care but was sent home after treating with meclizine, complaints of nausea, denies any READ, visual disturbances, focal motor weakness or sensory loss. He was not an ivtpa candidate on admission as he was out of the window. MRI brain following admission showed acute right inferior cerebellar stroke and right MCP stroke. MRA head/neck right 50-69% stenosis and left ICA > 70% stenosis, with ? right distal vertebral artery filling defect. CTA head/neck reported to show small right vert but no occlusion or thrombosis and no hemodynamic stenosis of the ICA. TTE showed EF 65%, with normal LA size with no PFO. Hba1c wwas 5.4 and LDL was 139. Per patient he lives alone, denies any falls, does not use cane or walker to ambulate, does drive and does not need any assistance for his ADLs. Per patient he did not take ASA every day prior to the stroke. He lives in an apartment and has 2 steps to get into the house and once in the apartment everything is at the same level and there are no steps per patient. [] Past Medical History Allergies carbamazepine [From Tegretol] Allergy (Verified 05/22/17 15:33) HIGH FEVER AND RASH Home Medications: Ambulatory Orders Medication Instructions Recorded Olmesartan Medoxomil [Benicar] 40 mg PO DAILY 05/21/17 Ondansetron [Zofran Odt] 4 mg PO Q8H PRN PRN #10 tablet 05/21/17 Cholecalciferol (Vitamin D3) 3,000 unit PO DAILY 05/22/17 [Vitamin D3] Magnesium Oxide [Magnesium] 400 mg PO DAILY 05/22/17 Multivitamin [Daily Multiple 1 each PO DAILY 05/22/17 Vitamin] Tadalafil [Cialis] 5 mg PO DAILY PRN 05/22/17 Acetaminophen [Tylenol Tablet] 650 mg PO Q6H PRN PRN tablet 05/24/17 Amlodipine [Norvasc] 10 mg PO DAILY tablet 05/24/17 Aspirin [Aspirin, Baby] 81 mg PO DAILY@0800 tab.chew 05/24/17 Atorvastatin Calcium [Lipitor] 40 mg PO QHS tablet 05/24/17 Clopidogrel Bisulfate [Plavix] 75 mg PO DAILY tablet 05/24/17 Hydrochlorothiazide [Hctz] 25 mg PO DAILY tablet 05/24/17 Mag Hydrox/Al Hydrox/Simeth 30 ml PO Q6H PRN PRN udc 05/24/17 [Mylanta II] Metoprolol Tartrate [Lopressor 25 mg PO BID tablet 05/24/17 (beta yeny)] Zolpidem Tartrate [Ambien] 5 mg PO QHS PRN PRN tablet 05/24/17 Surgical History: no surgical history Lives: Alone Smoking Status: Never smoker Alcohol: None Drugs: None - *Family History Maternal History Items: No pertinent history Review of Systems Constitutional: Reports: - - complete ROS negative except as documented in HPI VTE Information - Inpt Only VTE Present on Admission: No VTE Mechan Device Prophylaxis: SCD's, Knee High SOFIA Hose VTE Pharm Prophylaxis ordered?: Yes Patient Problems: Active and Suspected Problems Vertigo (Acute) Essential hypertension, benign (Acute) Intractable nausea and vomiting (Acute) Dizziness (Acute) Stroke (Acute) - Physical Exam General: Alert, Oriented x3, Cooperative HEENT: Atraumatic, PERRLA, EOMI, Normocephalic Neck: Supple, No JVD, Negative Carotid Bruits Lungs: Clear to auscultation, Normal air movement Cardiovascular: Regular rate, No murmurs Abdomen: Bowel Sounds Present, Soft, Non Tender Extremities: No edema, Capillary Refill Less than 3 Seconds Skin: No rashes, No breakdown Musculoskeletal: No Tenderness to Palpation of Joints or Extremities Neurological: Cranial nerves II-XII grossly intact Psych/Mental Status: Normal Affect, Appropriate Vital Signs Temp Pulse Resp BP Pulse Ox 97.7 F L 130 H 19 H 151/80 H 97 05/24/17 11:56 05/24/17 11:57 05/24/17 11:56 05/24/17 11:56 05/24/17 11:56 Oxygen Delivery Method Room Air Weight: 96.6 kg Body Mass Index (BMI) 30.1 Intake and Output for Last 24 Hours 05/22/17 05/23/17 05/24/17 23:59 23:59 23:59 Intake Total 1040 / 1040 360 / 360 Output Total 975 / 975 350 / 350 Balance 65 / 65 10 Laboratory Tests Past 24 Hrs 05/24/17 05/24/17 05:40 05:40 Sodium 137 Potassium 3.7 Chloride 103 Carbon Dioxide 21.0 Anion Gap 13 BUN 13 Creatinine 0.91 Estim Creat Clear Calc 81.33 Est GFR (MDRD) Af Amer 107 Est GFR (MDRD) Non-Af 88 BUN/Creatinine Ratio 14.3 Glucose 89 Hemoglobin A1c 5.4 Calcium 9.2 Assessment/Plan Active and Suspected Problems Vertigo (Acute) Essential hypertension, benign (Acute) Intractable nausea and vomiting (Acute) Dizziness (Acute) Stroke (Acute) The patient is a 67 year old CM with PMH uncontrolled HTN, recently diagnosed stroke who is being admitted to [facility] with debility post acute right inferior cerebellar stroke, for > 3 hrs therapy daily with the aim of returning back to his home at or near his prior level of functional independence. Patient was admitted to [facility] with dizziness on 05/22/2017. Per patient his dizziness started about 3 days prior to admission, he felt the whole room was spinning, had wobbliness, difficulty in walking, was running into the wall and things, went to the urgent care but was sent home after treating with meclizine, complaints of nausea, denies any READ, visual disturbances, focal motor weakness or sensory loss. He was not an ivtpa candidate on admission as he was out of the window. MRI brain following admission showed acute right inferior cerebellar stroke and right MCP stroke. MRA head/neck right 50-69% stenosis and left ICA > 70% stenosis, with ? right distal vertebral artery filling defect. CTA head/neck reported to show small right vert but no occlusion or thrombosis and no hemodynamic stenosis of the ICA. TTE showed EF 65%, with normal LA size with no PFO. Hba1c was 5.4 and LDL was 139. Per patient he lives alone, denies any falls, does not use cane or walker to ambulate, does drive and does not need any assistance for his ADLs. Per patient he did not take ASA every day prior to the stroke. He lives in an apartment and has 2 steps to get into the house and once in the apartment everything is at the same level and there are no steps per patient Impression Acute right inferior cerebellar and right MCP infarct- athero-embolic possible Plan -PT for gait stability -OT for ADLs -Analgesics as needed for pain -Bowel protocol -Stroke- ASA/Plavix for 1 month, then switch to single AP, on Lipitor 80 mg PO q hs -HTN- continue amlodipine, HCTZ and Cozaar -HLD- Lipitor 80 mg PO q hs -GI/DVT prophylaxis -Fall precautions -Recommend 30 day event recorder as outpatient -Follow up with Neurology as outpatient in 2-3 weeks after discharge I spent 60 minutes taking history, doing physical examination, reviewing medical records, coordinating care and counseling the patient. Code Visit Inpatient E&M: 57513 Init Hosp L3
--- NOTE | 2017-05-24 16:25 | PCM.DC.SUM ---
Discharge Date and Diagnosis Date of Admission: 05/22/17 Date of Discharge: 05/24/17 Hospital Course and Treatment Summary of Care Provided: The patient is a 67 year old M [] Patient symptoms dizziness and vertigo resolved. Gait ataxia better. 2D echo finding, MRI finding and MRI brain, CTA of head and neck findings discussed with the patient. Patient is a 67 years old male who presents to ED with complaining of nausea/vomiting with dizziness for 3 days. He was seen on 05/21/17, sent home with oral Zofran but returned with persisting symptoms. He has the symptoms for 2 days, with dizziness with tilting sensation. He is doing well when he is in supine position, but symptoms worsens when he is upright. He was not able to walk with severe nausea. He is having double vision persistently, but symptoms of dizziness appears intermittent and associated with head position. CT of head was negative on 05/21. He has mild decrease in hearing, but it is unchanged. He denied of any tinnitus or headache. Seen and examined today Patient symptoms dizziness and vertigo resolved. Gait ataxia better. 2D echo finding, MRI finding and MRI brain, CTA of head and neck findings discussed with the patient. General: Alert, Oriented x3, Cooperative HEENT: Atraumatic, PERRLA, EOMI, Normocephalic Neck: Supple, No JVD, Negative Carotid Bruits Lungs: Clear to auscultation, Normal air movement, No rhonchi, No wheeze, No rales Cardiovascular: Regular Rhythm, Normal S1, Normal S2, No murmurs, Tachycardic - Sinus tachycardia on the monitor heart rate is 120s per minute, heart rate controlled Abdomen: Bowel Sounds Present, Soft, Non Tender Extremities: No edema, Capillary Refill Less than 3 Seconds Skin: No rashes, No breakdown Musculoskeletal: No Tenderness to Palpation of Joints or Extremities Neurological: Cranial nerves II-XII grossly intact, Deep Tendon Reflexes 2+/4 and Symmetrical, Motor Exam 5/5 strength throughout, - - Patient has gross gait ataxia. Cerebellar signs are positive for dysmetria, dysdiakinesia and heel candelario test on right side. NIHSS 2 Psych/Mental Status: Normal Affect, Appropriate #1 Acute right inferior cerebellar with right MCP infarct: Currently patient is admitted and PCU floor. MRI brain showed acute right inferior cerebellar stroke and right MCP stroke. MRA head/neck right 50-69% stenosis and left ICA > 70% stenosis and nonvisualization of distal right vertebral artery, thrombosis as per radiologist. CT angiogram neck and head ordered and done. Head CTA reported as Ectasia and dilatation of the left vertebral artery and dolichoectasia of the basilar tip. Atherosclerotic calcification of the cavernous portions of the internal carotid arteries bilaterally. Neck CTA reported as Ectasia of the left vertebral artery with calcific plaque in its distal portion. 2D echo was done and reported EF 65% with a stage I diastolic dysfunction suggestive of chronic mild diastolic heart failure. fasting lipid profile shows LDL 139, HDL 38. TSH 1.94. stroke protocol with NIH stroke scale, aspirin, Plavix; dual antiplatelet agent statin, A1c 5.4 was done. Patient was recommended 30 day event monitor. Discussed with the neurologist, Dr. Dempsey. Patient is being transferred to acute rehab, [facility] #2 Essential hypertension. He was on Benicar, blood pressure was not controlled. Lisinopril was added on 05/21, and amlodipine 5 mg was given in ED. Discontinue lisinopril, continue Benicar 40 mg po qd, and and amlodipine 10 mg daily. Blood pressure is better controlled. 3. Sinus tachycardia, etiology unclear: Patient does not have symptoms of palpitation, chest pain or shortness of breath. Metoprolol 25 mg p.o. twice daily added for control. There is no suspicion of infection. #3 Intractable nausea and vomiting, related to cerebellar infarct Continue Zofran IV prn. DVT prophylaxis: Patient is on Lovenox. Patient is being discharged to acute rehab. Discharge medication reconciliation done. We will continue to follow in rehab. Discharge follow-up instructions completed. This note was generated with [employer] dictation software. Every effort was made to ensure accuracy, however computerized sales and production manager mistakes may be persist. Clinical Impression(s) from Imaging Studies Brain MRI 05/22/17 16:36 IMPRESSION: Acute ischemic infarction in the right inferior cerebellar hemisphere. Atrophy and periventricular white matter ischemic changes. Old bilateral lacunar infarcts. Electronically Signed: Beto Cruz MD at 20:28 EST , Service support , Head MRA 05/23/17 07:15 IMPRESSION: Nonvisualization of the distal right vertebral artery. Small filling defect within distal left vertebral artery. Further evaluation with CTA can be obtained. Electronically Signed: Manuela Godfrey MD at 12:57 EST Tel , Service support , Neck MRA 05/23/17 07:15 IMPRESSION: Estimated 50-69% stenosis on the right. Estimated greater than 70% stenosis on the left. Nonvisualization of the distal right vertebral artery. Further evaluation with CTA can be obtained. Electronically Signed: Manuela Godfrey MD at 13:00 EST Tel , Service support , Head CTA 05/23/17 13:36 IMPRESSION: Ectasia and dilatation of the left vertebral artery and dolichoectasia of the basilar tip. Atherosclerotic calcification of the cavernous portions of the internal carotid arteries bilaterally. Electronically Signed: Lazarus Molina MD at 14:53 EST Tel [phone], Service support , Neck CTA 05/23/17 13:36 IMPRESSION: Ectasia of the left vertebral artery with calcific plaque in its distal portion. Electronically Signed: Lazarus Molina MD at 14:56 EST Tel [phone], Service support , Home Medications: Medications to take at Discharge Olmesartan Medoxomil [Benicar] 40 mg PO DAILY 05/21/17 Ondansetron [Zofran Odt] 4 mg PO Q8H PRN PRN #10 tablet 05/21/17 Cholecalciferol (Vitamin D3) [Vitamin D3] 2,000 unit PO DAILY 05/22/17 Magnesium Oxide [Magnesium] 400 mg PO DAILY 05/22/17 Multivitamin [Daily Multiple Vitamin] 1 each PO DAILY 05/22/17 Tadalafil [Cialis] 5 mg PO DAILY PRN 05/22/17 Acetaminophen [Tylenol Tablet] 650 mg PO Q8 PRN 05/24/17 Amlodipine [Norvasc] 10 mg PO DAILY 05/24/17 Aspirin [Aspirin, Baby] 81 mg PO DAILY@0800 05/24/17 Atorvastatin Calcium [Lipitor] 80 mg PO QHS 05/24/17 Clopidogrel Bisulfate [Plavix] 75 mg PO DAILY 05/24/17 Hydrochlorothiazide [Hctz] 25 mg PO DAILY 05/24/17 Mag Hydrox/Al Hydrox/Simeth [Mylanta II] 30 ml PO Q6H PRN PRN udc 05/24/17 Metoprolol Tartrate [Lopressor (beta yeny)] 25 mg PO BID 05/24/17 Zolpidem Tartrate [Ambien] 5 mg PO QHS PRN PRN tablet 05/24/17 Primary Care Physician: Care Physician,No Primary [Primary Care Provider] - Please follow up with your Primary Care Physician in: in 2 week Please Follow Up With: José Dempsey MD When: in 2-3 weeks Meaningful Use Info Meaningful Use Diagnoses (Choose all that apply): Ischemic CVA - CVA Therapy Assessed for PT,OT and/or ST?: Yes - Ischemic Stroke Antithrombotic order at d/c?: Yes Dx of Atrial fib/flutter?: No Anticoagulant at discharge?: Yes Statins at discharge?: Yes Primary Dx Acute Ischemic CVA?: Yes IV tPA ordered during stay?: No Reason IV t-PA not ordered: Procedure not Indicated - Time of onset not clear. Out of time window Code Visit Inpatient E&M: 88171 Disch Hosp
--- NOTE | 2017-05-24 16:35 | DS.PCM_ITS ---
Discharge Date and Diagnosis Date of Admission: 05/22/17 Date of Discharge: 05/24/17 Hospital Course and Treatment Summary of Care Provided: The patient is a 67 year old M [] Patient symptoms dizziness and vertigo resolved. Gait ataxia better. 2D echo finding, MRI finding and MRI brain, CTA of head and neck findings discussed with the patient. Patient is a 67 years old male who presents to ED with complaining of nausea/vomiting with dizziness for 3 days. He was seen on 05/21/17, sent home with oral Zofran but returned with persisting symptoms. He has the symptoms for 2 days, with dizziness with tilting sensation. He is doing well when he is in supine position, but symptoms worsens when he is upright. He was not able to walk with severe nausea. He is having double vision persistently, but symptoms of dizziness appears intermittent and associated with head position. CT of head was negative on 05/21. He has mild decrease in hearing, but it is unchanged. He denied of any tinnitus or headache. Seen and examined today Patient symptoms dizziness and vertigo resolved. Gait ataxia better. 2D echo finding, MRI finding and MRI brain, CTA of head and neck findings discussed with the patient. General: Alert, Oriented x3, Cooperative HEENT: Atraumatic, PERRLA, EOMI, Normocephalic Neck: Supple, No JVD, Negative Carotid Bruits Lungs: Clear to auscultation, Normal air movement, No rhonchi, No wheeze, No rales Cardiovascular: Regular Rhythm, Normal S1, Normal S2, No murmurs, Tachycardic - Sinus tachycardia on the monitor heart rate is 120s per minute, heart rate controlled Abdomen: Bowel Sounds Present, Soft, Non Tender Extremities: No edema, Capillary Refill Less than 3 Seconds Skin: No rashes, No breakdown Musculoskeletal: No Tenderness to Palpation of Joints or Extremities Neurological: Cranial nerves II-XII grossly intact, Deep Tendon Reflexes 2+/4 and Symmetrical, Motor Exam 5/5 strength throughout, - - Patient has gross gait ataxia. Cerebellar signs are positive for dysmetria, dysdiakinesia and heel candelario test on right side. NIHSS 2 Psych/Mental Status: Normal Affect, Appropriate #1 Acute right inferior cerebellar with right MCP infarct: Currently patient is admitted and PCU floor. MRI brain showed acute right inferior cerebellar stroke and right MCP stroke. MRA head/neck right 50-69% stenosis and left ICA > 70% stenosis and nonvisualization of distal right vertebral artery, thrombosis as per radiologist. CT angiogram neck and head ordered and done. Head CTA reported as Ectasia and dilatation of the left vertebral artery and dolichoectasia of the basilar tip. Atherosclerotic calcification of the cavernous portions of the internal carotid arteries bilaterally. Neck CTA reported as Ectasia of the left vertebral artery with calcific plaque in its distal portion. 2D echo was done and reported EF 65% with a stage I diastolic dysfunction suggestive of chronic mild diastolic heart failure. fasting lipid profile shows LDL 139, HDL 38. TSH 1.94. stroke protocol with NIH stroke scale, aspirin, Plavix; dual antiplatelet agent statin, A1c 5.4 was done. Patient was recommended 30 day event monitor. Discussed with the neurologist, Dr. Dempsey. Patient is being transferred to acute rehab, [facility]. #2 Essential hypertension. He was on Benicar, blood pressure was not controlled. Lisinopril was added on , and amlodipine 5 mg was given in ED. Discontinue lisinopril, continue Benicar 40 mg po qd, and and amlodipine 10 mg daily. Blood pressure is better controlled. 3. Sinus tachycardia, etiology unclear: Patient does not have symptoms of palpitation, chest pain or shortness of breath. Metoprolol 25 mg p.o. twice daily added for control. There is no suspicion of infection. #3 Intractable nausea and vomiting, related to cerebellar infarct Continue Zofran IV prn. DVT prophylaxis: Patient is on Lovenox. Patient is being discharged to acute rehab. Discharge medication reconciliation done. We will continue to follow in rehab. Discharge follow-up instructions completed. This note was generated with [employer] dictation software. Every effort was made to ensure accuracy, however computerized registered nurse supervisor mistakes may be persist. Clinical Impression(s) from Imaging Studies Brain MRI 05/22/17 16:36 IMPRESSION: Acute ischemic infarction in the right inferior cerebellar hemisphere. Atrophy and periventricular white matter ischemic changes. Old bilateral lacunar infarcts. Electronically Signed: Beto Cruz MD at 20:28 EST , Service support , Head MRA 05/23/17 07:15 IMPRESSION: Nonvisualization of the distal right vertebral artery. Small filling defect within distal left vertebral artery. Further evaluation with CTA can be obtained. Electronically Signed: Manuela Godfrey MD at 12:57 EST Tel , Service support , Neck MRA 05/23/17 07:15 IMPRESSION: Estimated 50-69% stenosis on the right. Estimated greater than 70% stenosis on the left. Nonvisualization of the distal right vertebral artery. Further evaluation with CTA can be obtained. Electronically Signed: Manuela Godfrey MD at 13:00 EST Tel , Service support , Head CTA 05/23/17 13:36 IMPRESSION: Ectasia and dilatation of the left vertebral artery and dolichoectasia of the basilar tip. Atherosclerotic calcification of the cavernous portions of the internal carotid arteries bilaterally. Electronically Signed: Lazarus Molina MD at 14:53 EST Tel [phone], Service support , Neck CTA 05/23/17 13:36 IMPRESSION: Ectasia of the left vertebral artery with calcific plaque in its distal portion. Electronically Signed: Lazarus Molina MD at 14:56 EST Tel [phone], Service support , Home Medications: Medications to take at Discharge Olmesartan Medoxomil [Benicar] 40 mg PO DAILY 05/21/17 Ondansetron [Zofran Odt] 4 mg PO Q8H PRN PRN #10 tablet 05/21/17 Cholecalciferol (Vitamin D3) [Vitamin D3] 2,000 unit PO DAILY 05/22/17 Magnesium Oxide [Magnesium] 400 mg PO DAILY 05/22/17 Multivitamin [Daily Multiple Vitamin] 1 each PO DAILY 05/22/17 Tadalafil [Cialis] 5 mg PO DAILY PRN 05/22/17 Acetaminophen [Tylenol Tablet] 650 mg PO Q8 PRN 05/24/17 Amlodipine [Norvasc] 10 mg PO DAILY 05/24/17 Aspirin [Aspirin, Baby] 81 mg PO DAILY@0800 05/24/17 Atorvastatin Calcium [Lipitor] 80 mg PO QHS 05/24/17 Clopidogrel Bisulfate [Plavix] 75 mg PO DAILY 05/24/17 Hydrochlorothiazide [Hctz] 25 mg PO DAILY 05/24/17 Mag Hydrox/Al Hydrox/Simeth [Mylanta II] 30 ml PO Q6H PRN PRN udc 05/24/17 Metoprolol Tartrate [Lopressor (beta yeny)] 25 mg PO BID 05/24/17 Zolpidem Tartrate [Ambien] 5 mg PO QHS PRN PRN tablet 05/24/17 Primary Care Physician: Care Physician,No Primary [Primary Care Provider] - Please follow up with your Primary Care Physician in: in 2 week Please Follow Up With: José Dempsey MD When: in 2-3 weeks Meaningful Use Info Meaningful Use Diagnoses (Choose all that apply): Ischemic CVA - CVA Therapy Assessed for PT,OT and/or ST?: Yes - Ischemic Stroke Antithrombotic order at d/c?: Yes Dx of Atrial fib/flutter?: No Anticoagulant at discharge?: Yes Statins at discharge?: Yes Primary Dx Acute Ischemic CVA?: Yes IV tPA ordered during stay?: No Reason IV t-PA not ordered: Procedure not Indicated - Time of onset not clear. Out of time window Code Visit Inpatient E&M: [id number] Disch Hosp
== END 2017-05-24 15:00 | DRG 66 ==
LOC: ED 12:38 → MS3 16:19 → PCU 21:26
PROVIDERS: Family Medicine; Admitting Provider Hospitalist; Emergency Provider Emergency Medicine; Visit Provider Internal Medicine
DX: I63.9 Cerebral infarction, unspecified (principal); H53.2 Diplopia; I65.23 Occlusion and stenosis of bilateral carotid arteries; R00.0 Tachycardia, unspecified; I10 Essential (primary) hypertension; R29.702 NIHSS score 2
CPT/HCPCS: 36415; 70450; 70496; 70498; 70544; 70547; 70551; 80048; 80053; 80061; 83036; 83735; 84443; 84484; 85025; 93005; 93306; 96361; 96374; 97166; 97535; 97802; 99282; 99284; J7030; Q9967; A4216; J2405

== ENCOUNTER 2017-05-24 15:15 | Inpatient (IN) | payer MEDICARE, OTHER, SELFPAY ==
[2017-05-24 15:27] VITALS: BP 142/86; PULSE 115; RESP 18; TEMP 36.5; O2SAT 94; BMI 29.7; BMI 29.8
[2017-05-24 22:00] VITALS: BP 128/87; PULSE 115; RESP 18; TEMP 36.5; O2SAT 94
[2017-05-24 22:18] VITALS: BP 128/87; PULSE 116
[2017-05-24] MEDS: Metoprolol Tartrate 25 MG Tablet PO (22:18)
[2017-05-24] MEDS: Atorvastatin Calcium 80 MG Tablet PO (22:19)
[2017-05-25] MEDS: Enoxaparin 40 MG/0.4 ML Syringe SC (06:27)
[2017-05-25 07:10] VITALS: O2SAT 94
[2017-05-25 07:43] VITALS: BP 130/82; PULSE 106; RESP 18; TEMP 36.6; O2SAT 94
[2017-05-25 08:05] VITALS: PULSE 106
[2017-05-25] MEDS: amLODIPine 10 MG Tablet PO (08:05)
[2017-05-25] MEDS: Metoprolol Tartrate 25 MG Tablet PO ×2 (08:05→21:55)
[2017-05-25] MEDS: Losartan Potassium 100 MG Tablet PO (08:05)
[2017-05-25] MEDS: Multivitamins,Therapeutic Tablet 1 TABLET PO (08:05)
[2017-05-25] MEDS: Aspirin 81 MG TAB.CHEW PO (08:06)
[2017-05-25] MEDS: hydroCHLOROthiazide 25 MG Tablet PO (08:06)
[2017-05-25] MEDS: Magnesium Oxide 400 MG Tablet PO (08:06)
[2017-05-25] MEDS: Clopidogrel Bisulfate 75 MG Tablet PO (08:06)
[2017-05-25 09:36] VITALS: BMI 29.7
[2017-05-25] MEDS: NYSTATIN 500,000 UNIT/5 ML UDC 500000 UNIT PO ×4 (09:56→21:55)
[2017-05-25 21:55] VITALS: BP 127/68; PULSE 110; RESP 16; TEMP 36.6; O2SAT 94; BMI 29.7
[2017-05-25] MEDS: Atorvastatin Calcium 80 MG Tablet PO (21:55)
--- NOTE | 2017-05-26 00:38 | NURSING ---
Reviewed and agree with LPNs fims and handoff
[2017-05-26] MEDS: Enoxaparin 40 MG/0.4 ML Syringe SC (06:53)
[2017-05-26 06:56] VITALS: O2SAT 97
[2017-05-26 07:29] VITALS: BP 124/82; PULSE 104; RESP 18; TEMP 36.7; O2SAT 95
[2017-05-26] MEDS: Magnesium Oxide 400 MG Tablet PO (07:50)
[2017-05-26] MEDS: Losartan Potassium 100 MG Tablet PO (07:50)
[2017-05-26] MEDS: Senna/Docusate Sodium 1 Tablet 2 TABLET PO (07:50)
[2017-05-26] MEDS: amLODIPine 10 MG Tablet PO (07:50)
[2017-05-26] MEDS: NYSTATIN 500,000 UNIT/5 ML UDC 500000 UNIT PO ×4 (07:50→20:09)
[2017-05-26 07:51] VITALS: PULSE 104
[2017-05-26] MEDS: Clopidogrel Bisulfate 75 MG Tablet PO (07:51)
[2017-05-26] MEDS: Multivitamins,Therapeutic Tablet 1 TABLET PO (07:51)
[2017-05-26] MEDS: Metoprolol Tartrate 25 MG Tablet PO ×2 (07:51→20:08)
[2017-05-26] MEDS: Aspirin 81 MG TAB.CHEW PO (07:51)
[2017-05-26] MEDS: hydroCHLOROthiazide 25 MG Tablet PO (07:51)
[2017-05-26 09:53] VITALS: BMI 29.7
--- NOTE | 2017-05-26 16:42 | NURSING ---
pt ambulating in curry with staff
--- NOTE | 2017-05-26 16:49 | PCM.PN.HOSP ---
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 Earlier patient had symptoms of dizziness, muscle incoordination including gait ataxia, disequilibrium and nausea. Inch summary, his workup in the PCU floor is as follows MRI brain showed acute right inferior cerebellar stroke and right MCP stroke. MRA head/neck right 50-69% stenosis and left ICA > 70% stenosis and nonvisualization of distal right vertebral artery, thrombosis as per radiologist. CT angiogram neck and head ordered and done. Head CTA reported as Ectasia and dilatation of the left vertebral artery and dolichoectasia of the basilar tip. Atherosclerotic calcification of the cavernous portions of the internal carotid arteries bilaterally. Neck CTA reported as Ectasia of the left vertebral artery with calcific plaque in its distal portion. 2D echo was done and reported EF 65% with a stage I diastolic dysfunction suggestive of chronic mild diastolic heart failure. fasting lipid profile shows LDL 139, HDL 38. TSH 1.94. who Vitals/I&O's: Vital Signs Temp Pulse Resp BP Pulse Ox 98.1 F 104 H 18 124/82 H 95 05/26/17 07:29 05/26/17 07:51 05/26/17 07:29 05/26/17 07:29 05/26/17 07:29 Oxygen Delivery Method Room Air Weight: 207 lb 7.28 oz Body Mass Index (BMI) 29.7 Intake and Output for Last 24 Hours 05/24/17 05/25/17 05/26/17 23:59 23:59 23:59 Intake Total 360 / 360 240 / 240 Balance 360 / 360 240 / 240 General: Alert, Oriented x3, Cooperative HEENT: Atraumatic, PERRLA, EOMI, Normocephalic Neck: Supple, No JVD, Negative Carotid Bruits Lungs: Clear to auscultation, Normal air movement, No rhonchi, No wheeze, No rales Cardiovascular: Regular rate, Regular Rhythm, Normal S1, Normal S2, No murmurs Abdomen: Bowel Sounds Present, Soft, Non Tender, Non-Distended Extremities: No edema, Capillary Refill Less than 3 Seconds Skin: No rashes, No breakdown Musculoskeletal: No Tenderness to Palpation of Joints or Extremities Neurological: Cranial nerves II-XII grossly intact, Deep Tendon Reflexes 2+/4 and Symmetrical, Motor Exam 5/5 strength throughout, - - Muscle coordination including gpnhiu-[id number], wbfi-mt-[id number] and alternate hand movement is much better and improved. Psych/Mental Status: Normal Affect, Appropriate Current Medications Acetaminophen (Tylenol) 650 mg PO Q8H PRN PRN Reason: PAIN Al Hydroxide/Mg Hydroxide (Mylanta Ii) 30 ml PO Q6H PRN PRN PRN Reason: Gastric burning Amlodipine Besylate (Norvasc) 10 mg PO DAILY [facility] Last Admin: 05/26/17 07:50 Dose: 10 mg Aspirin (Aspirin, Baby) 81 mg PO DAILY@0800 [facility] Last Admin: 05/26/17 07:51 Dose: 81 mg Atorvastatin Calcium (Lipitor) 80 mg PO QHS [facility] Last Admin: 05/25/17 21:55 Dose: 80 mg Bisacodyl (Dulcolax) 10 mg RECTAL .PRN X 1 PRN PRN Reason: Constipation Cholecalciferol (Vitamin [facility]) [facility] Admin: 05/26/17 07:50 Dose: 2,000 unit Clopidogrel Bisulfate (Plavix) 75 mg PO DAILY [facility] Last Admin: 05/26/17 07:51 Dose: 75 mg Enoxaparin Sodium (Lovenox) 40 mg SC DAILY@0600 [facility] Last Admin: 05/26/17 06:53 Dose: 40 mg Hydrochlorothiazide (Hctz) 25 mg PO DAILY [facility] Last Admin: 05/26/17 07:51 Dose: 25 mg Losartan Potassium (Cozaar) 100 mg PO DAILY [facility] Last Admin: 05/26/17 07:50 Dose: 100 mg Magnesium Hydroxide (Milk Of Magnesia) 30 ml PO .PRN X 1 PRN PRN Reason: Constipation Magnesium Oxide (Mag-Ox 400) [facility] Last Admin: 05/26/17 07:50 Dose: 400 mg Metoprolol Tartrate (Lopressor (Beta Óscar)) 25 mg PO BID [facility] Last Admin: 05/26/17 07:51 Dose: 25 mg Multivitamins (Multivitamin) 1 tablet PO DAILY@0800 [facility] Last Admin: 05/26/17 07:51 Dose: 1 tablet Nystatin (Nystatin) 500,000 unit PO 4X/DAY [facility] Last Admin: 05/26/17 13:28 Dose: 500,000 unit Ondansetron HCl (Zofran Odt) 4 mg PO Q8H PRN PRN PRN Reason: NAUSEA Senna/Docusate Sodium (Senokot-S, Gabriela-Colace) 2 tablet PO DAILY [facility] Last Admin: 05/26/17 07:50 Dose: 2 tablet Assessment/Plan Patient is a 67 years old male who was transferred to rehab unit after diagnosis of 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 fasting lipid profile shows LDL 139, HDL 38. TSH 1.94. 1 Acute right inferior cerebellar with right MCP infarct: Continue PT OT and speech evaluation and treatment. MRI brain showed acute right inferior cerebellar stroke and right MCP stroke. MRA head/neck right 50-69% stenosis and left ICA > 70% stenosis and nonvisualization of distal right vertebral artery, thrombosis as per radiologist. CT angiogram neck and head ordered and done. Head CTA reported as Ectasia and dilatation of the left vertebral artery and dolichoectasia of the basilar tip. Atherosclerotic calcification of the cavernous portions of the internal carotid arteries bilaterally. Neck CTA reported as Ectasia of the left vertebral artery with calcific plaque in its distal portion. 2 Essential hypertension. Heart pressure is well controlled, systolic blood pressure in 120s. Latest 124/82: Continue amlodipine, HCTZ, losartan and metoprolol. 3. Mild chronic diastolic dysfunction as per the 2D echo due to hypertension: 2D echo was done and reported EF 65% with a stage I diastolic dysfunction suggestive of chronic mild diastolic heart failure. 4. Sinus tachycardia, etiology unclear: Patient still has mild tachycardia, heart rate in 100. patient does not have symptoms of palpitation, chest pain or shortness of breath. Metoprolol increased to 50 mg twice daily. 5. Dyslipidemia: fasting lipid profile shows LDL 139, HDL 38. TSH 1.94. On atorvastatin 80 mg daily. Continue rehab. DVT prophylaxis: On Lovenox 40 mg subcu daily Code Visit Inpatient E&M: 20065 Subs Hosp L2
--- NOTE | 2017-05-26 17:00 | PN_ITS ---
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 Earlier patient had symptoms of dizziness, muscle incoordination including gait ataxia, disequilibrium and nausea. Inch summary, his workup in the PCU floor is as follows MRI brain showed acute right inferior cerebellar stroke and right MCP stroke. MRA head/neck right 50-69% stenosis and left ICA > 70% stenosis and nonvisualization of distal right vertebral artery, thrombosis as per radiologist. CT angiogram neck and head ordered and done. Head CTA reported as Ectasia and dilatation of the left vertebral artery and dolichoectasia of the basilar tip. Atherosclerotic calcification of the cavernous portions of the internal carotid arteries bilaterally. Neck CTA reported as Ectasia of the left vertebral artery with calcific plaque in its distal portion. 2D echo was done and reported EF 65% with a stage I diastolic dysfunction suggestive of chronic mild diastolic heart failure. fasting lipid profile shows LDL 139, HDL 38. TSH 1.94. who Vitals/I&O's: Vital Signs Temp Pulse Resp BP Pulse Ox 98.1 F 104 H 18 124/82 H 95 05/26/17 07:29 05/26/17 07:51 05/26/17 07:29 05/26/17 07:29 05/26/17 07:29 Oxygen Delivery Method Room Air Weight: 207 lb 7.28 oz Body Mass Index (BMI) 29.7 Intake and Output for Last 24 Hours 05/24/17 05/25/17 05/26/17 23:59 23:59 23:59 Intake Total 360 / 360 240 / 240 Balance 360 / 360 240 / 240 General: Alert, Oriented x3, Cooperative HEENT: Atraumatic, PERRLA, EOMI, Normocephalic Neck: Supple, No JVD, Negative Carotid Bruits Lungs: Clear to auscultation, Normal air movement, No rhonchi, No wheeze, No rales Cardiovascular: Regular rate, Regular Rhythm, Normal S1, Normal S2, No murmurs Abdomen: Bowel Sounds Present, Soft, Non Tender, Non-Distended Extremities: No edema, Capillary Refill Less than 3 Seconds Skin: No rashes, No breakdown Musculoskeletal: No Tenderness to Palpation of Joints or Extremities Neurological: Cranial nerves II-XII grossly intact, Deep Tendon Reflexes 2+/4 and Symmetrical, Motor Exam 5/5 strength throughout, - - Muscle coordination including gvcxsb-[id number], ghxl-jw-ozvj and alternate hand movement is much better and improved. Psych/Mental Status: Normal Affect, Appropriate Current Medications Acetaminophen (Tylenol) 650 mg PO Q8H PRN PRN Reason: PAIN Al Hydroxide/Mg Hydroxide (Mylanta Ii) 30 ml PO Q6H PRN PRN PRN Reason: Gastric burning Amlodipine Besylate (Norvasc) 10 mg PO DAILY [facility] Last Admin: 05/26/17 07:50 Dose: 10 mg Aspirin (Aspirin, Baby) 81 mg PO DAILY@0800 [facility] Last Admin: 05/26/17 07:51 Dose: 81 mg Atorvastatin Calcium (Lipitor) 80 mg PO QHS [facility] Last Admin: 05/25/17 21:55 Dose: 80 mg Bisacodyl (Dulcolax) 10 mg RECTAL .PRN X 1 PRN PRN Reason: Constipation [facility]olecalciferol ([facility]itamin [facility]) [facility] Admin: 05/26/17 07:50 Dose: 2,000 unit Clopidogrel Bisulfate (Plavix) 75 mg PO DAILY [facility] Last Admin: 05/26/17 07:51 Dose: 75 mg Enoxaparin Sodium (Lovenox) 40 mg SC DAILY@0600 [facility] Last Admin: 05/26/17 06:53 Dose: 40 mg Hydrochlorothiazide (Hctz) 25 mg PO DAILY [facility] Last Admin: 05/26/17 07:51 Dose: 25 mg Losartan Potassium (Cozaar) 100 mg PO DAILY [facility] Last Admin: 05/26/17 07:50 Dose: 100 mg Magnesium Hydroxide (Milk Of Magnesia) 30 ml PO .PRN X 1 PRN PRN Reason: Constipation Magnesium Oxide (Mag-Ox 400) [facility] Admin: 05/26/17 07:50 Dose: 400 mg Metoprolol Tartrate (Lopressor (Beta Óscar)) 25 mg PO BID [facility] Last Admin: 05/26/17 07:51 Dose: 25 mg Multivitamins (Multivitamin) 1 tablet PO DAILY@0800 [facility] Last Admin: 05/26/17 07:51 Dose: 1 tablet Nystatin (Nystatin) 500,000 unit PO 4X/DAY [facility] Last Admin: 05/26/17 13:28 Dose: 500,000 unit Ondansetron HCl (Zofran Odt) 4 mg PO Q8H PRN PRN PRN Reason: NAUSEA Senna/Docusate Sodium (Senokot-S, Gabriela-Colace) 2 tablet PO DAILY [facility] Last Admin: 05/26/17 07:50 Dose: 2 tablet Assessment/Plan Patient is a 67 years old male who was transferred to rehab unit after diagnosis of 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 fasting lipid profile shows LDL 139, HDL 38. TSH 1.94. 1 Acute right inferior cerebellar with right MCP infarct: Continue PT OT and speech evaluation and treatment. MRI brain showed acute right inferior cerebellar stroke and right MCP stroke. MRA head/neck right 50-69% stenosis and left ICA > 70% stenosis and nonvisualization of distal right vertebral artery, thrombosis as per radiologist. CT angiogram neck and head ordered and done. Head CTA reported as Ectasia and dilatation of the left vertebral artery and dolichoectasia of the basilar tip. Atherosclerotic calcification of the cavernous portions of the internal carotid arteries bilaterally. Neck CTA reported as Ectasia of the left vertebral artery with calcific plaque in its distal portion. 2 Essential hypertension. Heart pressure is well controlled, systolic blood pressure in 120s. Latest 124/82: Continue amlodipine, HCTZ, losartan and metoprolol. 3. Mild chronic diastolic dysfunction as per the 2D echo due to hypertension: 2D echo was done and reported EF 65% with a stage I diastolic dysfunction suggestive of chronic mild diastolic heart failure. 4. Sinus tachycardia, etiology unclear: Patient still has mild tachycardia, heart rate in 100. patient does not have symptoms of palpitation, chest pain or shortness of breath. Metoprolol increased to 50 mg twice daily. 5. Dyslipidemia: fasting lipid profile shows LDL 139, HDL 38. TSH 1.94. On atorvastatin 80 mg daily. Continue rehab. DVT prophylaxis: On Lovenox 40 mg subcu daily Code Visit Inpatient E&M: 12388 Subs Hosp L2
[2017-05-26 20:00] VITALS: BP 131/87; PULSE 110; RESP 18; TEMP 37; O2SAT 93; O2SAT 96; BMI 29.7
[2017-05-26 20:08] VITALS: BP 131/87; PULSE 110
[2017-05-26] MEDS: Atorvastatin Calcium 80 MG Tablet PO (20:08)
--- NOTE | 2017-05-27 02:00 | NURSING ---
Reviewed and agree with LPNs fims and handoff
[2017-05-27] MEDS: Enoxaparin 40 MG/0.4 ML Syringe SC (05:37)
[2017-05-27 06:17] LABS: Absolute Lymphocyte Count 2.74 X10^3/ul (0.83-4.51); Absolute Neutrophil Count 4.4 X10^3/uL (2.0-7.7); Basophil# 0.04 X10^3/uL; Basophil% 0.5 % (0-1); Eosinophil# 0.38 X10^3/uL; Eosinophils% 4.5 % (0-5); Hematocrit 45.7 % (40-54); Hemoglobin 15.7 g/dl (13.0-16.5); Lymphocyte # 2.74 X10^3/ul (4.0); Lymphocyte % 32.3 % (19-41); Mean Corp Hgb Conc 34.4 g/gl (32-36); Mean Corpuscular Hgb 30.7 pg (27.0-32.0); Mean Corpuscular Volume 89.4 fL (80-94); Mean Platelet Vol. 11.4 fl (6.2-12.0); Monocyte# 0.92 X10^3/uL; Monocyte% 10.8 % (0-10); Neutrophil # 4.39 X10^3/uL (2.7-7.7); Neutrophil % 51.7 % (47-70); Platelet Count 272 K/mm3 (150-450); RBC Distribution Width CV 13.8 % (11.6-14.6); RBC Distribution Width SD 44.6 fl (35.1-43.9); Red Blood Count 5.11 M/mm3 (4.6-6.2); White Blood Count 8.5 K/mm3 (4.4-11.0)
[2017-05-27 06:25] LABS: POSITIVE COUNT NO; POSITIVE DIFFERENTIAL NO; POSITIVE MORPHOLOGY NO
[2017-05-27 06:34] LABS: ALB/GLOB Ratio 0.9 RATIO (0.9-2.4); AST(SGOT) 20 U/L (15-37); Alanine Aminotransfer ALT/SGPT 27 U/L (12-78); Albumin, Serum 3.2 g/dL (3.4-5.0); Alkaline Phosphatase 68 U/L (45-117); Anion Gap 11 (5-15); BUN 37 mg/dL (7-18); BUN/Creat Ratio 33.6 RATIO (10-20); Calcium,Total 8.8 mg/dL (8.5-10.1); Chloride 103 mmol/L (98-107); EST Glomerular Filtration Rate 71 mL/min (>60); Est Glom Filt Rate - Afr Amer 86 mL/min (>60); Estimated Creatinine Clearance 67.29 ml/min; Globulin 3.7 g/dL (2.2-4.2); Glucose 89 mg/dL (70-110); Phosphorus 4.1 mg/dL (2.5-4.9); Potassium 3.3 mmol/L (3.5-5.1); Protein, Total 6.9 g/dL (6.4-8.2); Sodium Level 139 mmol/L (136-145)
[2017-05-27 08:13] VITALS: BP 148/87; PULSE 110; RESP 20; TEMP 36.7; O2SAT 93
[2017-05-27 11:00] VITALS: O2SAT 95
[2017-05-27] MEDS: NYSTATIN 500,000 UNIT/5 ML UDC 500000 UNIT PO ×4 (11:34→21:46)
[2017-05-27] MEDS: hydroCHLOROthiazide 25 MG Tablet PO (11:34)
[2017-05-27] MEDS: Clopidogrel Bisulfate 75 MG Tablet PO (11:34)
[2017-05-27] MEDS: Senna/Docusate Sodium 1 Tablet 2 TABLET PO (11:34)
[2017-05-27] MEDS: Multivitamins,Therapeutic Tablet 1 TABLET PO (11:34)
[2017-05-27] MEDS: Aspirin 81 MG TAB.CHEW PO (11:34)
[2017-05-27] MEDS: Magnesium Oxide 400 MG Tablet PO (11:34)
[2017-05-27] MEDS: Losartan Potassium 100 MG Tablet PO (11:34)
[2017-05-27] MEDS: amLODIPine 10 MG Tablet PO (11:34)
[2017-05-27 11:35] VITALS: BP 148/87; PULSE 110
[2017-05-27] MEDS: Metoprolol Tartrate 25 MG Tablet PO ×2 (11:35→21:46)
--- NOTE | 2017-05-27 13:36 | CASEMGMT ---
Social Work Offered to contact patient support system to introduce self as well as social work role on the Inpatient Rehab Unit. Patient declining at this time. Support given. Will continue to follow. Shima HARDY, POWERHOUSE TENDER
--- NOTE | 2017-05-27 14:16 | PCM.PN.NEU ---
Subjective: Patient seen and examined, No acute issue overnight. Patient tolerating therapy. Denies any Shortness of breath or chest pains. No issues with GI/. - Physical Exam General: Alert, Oriented x3, Cooperative HEENT: Atraumatic, PERRLA, EOMI, Normocephalic Neck: Supple, No JVD, Negative Carotid Bruits Lungs: Clear to auscultation, Normal air movement Cardiovascular: Regular rate, No murmurs Abdomen: Bowel Sounds Present, Soft, Non Tender Extremities: No edema, Capillary Refill Less than 3 Seconds Skin: No rashes, No breakdown Musculoskeletal: No Tenderness to Palpation of Joints or Extremities Neurological: Cranial nerves II-XII grossly intact Psych/Mental Status: Normal Affect, Appropriate Vital Signs Temp Pulse Resp BP Pulse Ox 98.0 F 110 H 20 H 148/87 H 95 05/27/17 08:13 05/27/17 11:35 05/27/17 08:13 05/27/17 11:35 05/27/17 11:00 Oxygen Delivery Method Room Air Weight: 94.1 kg Body Mass Index (BMI) 29.7 Intake and Output for Last 24 Hours 05/25/17 05/26/17 05/27/17 23:59 23:59 23:59 Intake Total 360 / 360 480 / 480 480 / 480 Balance 360 / 360 480 / 480 480 / 480 Laboratory Tests Past 24 Hrs 05/27/17 05/27/17 05:47 05:47 WBC 8.5 RBC 5.11 Hgb 15.7 Hct 45.7 MCV 89.4 MCH 30.7 MCHC 34.4 RDW 13.8 RDW Differential 44.6 H Plt Count 272 MPV 11.4 Immature Gran % (Auto) 0.200 Neut % (Auto) 51.7 Lymph % (Auto) 32.3 [place] % (Auto) 10.8 H Eos % (Auto) 4.5 Baso % (Auto) 0.5 Absolute Neuts (auto) 4.4 Absolute Lymphs (auto) 2.74 Total Counted Not Reportable Sodium 139 Potassium 3.3 L Chloride 103 Carbon Dioxide 25.0 Anion Gap 11 BUN 37 H Creatinine 1.10 Estim Creat Clear Calc 67.29 Est GFR (MDRD) Af Amer 86 Est GFR (MDRD) Non-Af 71 BUN/Creatinine Ratio 33.6 H Glucose 89 Calcium 8.8 Phosphorus 4.1 Magnesium 2.0 Total Bilirubin 0.80 AST 20 ALT 27 Alkaline Phosphatase 68 Total Protein 6.9 Albumin 3.2 L Globulin 3.7 Albumin/Globulin Ratio 0.9 Active Medications Acetaminophen (Tylenol) 650 mg PO Q8H PRN PRN Reason: PAIN Al Hydroxide/Mg Hydroxide (Mylanta Ii) 30 ml PO Q6H PRN PRN PRN Reason: Gastric burning Amlodipine Besylate (Norvasc) 10 mg PO DAILY [facility] Last Admin: 05/27/17 11:34 Dose: 10 mg Aspirin (Aspirin, Baby) 81 mg PO DAILY@0800 [facility] Last Admin: 05/27/17 11:34 Dose: 81 mg Atorvastatin Calcium (Lipitor) 80 mg PO QHS [facility] Last Admin: 05/26/17 20:08 Dose: 80 mg Bisacodyl (Dulcolax) 10 mg RECTAL .PRN X 1 PRN PRN Reason: Constipation [facility]olecalcifer[facility] ([facility]) [facility] Admin: 05/27/17 11:34 Dose: 2,000 unit Clopidogrel Bisulfate (Plavix) 75 mg PO DAILY [facility] Last Admin: 05/27/17 11:34 Dose: 75 mg Enoxaparin Sodium (Lovenox) 40 mg SC DAILY@0600 [facility] Last Admin: 05/27/17 05:37 Dose: 40 mg Hydrochlorothiazide (Hctz) 25 mg PO DAILY [facility] Last Admin: 05/27/17 11:34 Dose: 25 mg Losartan Potassium (Cozaar) 100 mg PO DAILY [facility] Last Admin: 05/27/17 11:34 Dose: 100 mg Magnesium Hydroxide (Milk Of Magnesia) 30 ml PO .PRN X 1 PRN PRN Reason: Constipation Magnesium Oxide (Mag-Ox 400) [facility] Admin: 05/27/17 11:34 Dose: 400 mg Metoprolol Tartrate (Lopressor (Beta Óscar)) 25 mg PO BID [facility] Last Admin: 05/27/17 11:35 Dose: 25 mg Multivitamins (Multivitamin) 1 tablet PO DAILY@0800 [facility] Last Admin: 05/27/17 11:34 Dose: 1 tablet Nystatin (Nystatin) 500,000 unit PO 4X/DAY [facility] Last Admin: 05/27/17 11:34 Dose: 500,000 unit Ondansetron HCl (Zofran Odt) 4 mg PO Q8H PRN PRN PRN Reason: NAUSEA Senna/Docusate Sodium (Senokot-S, Gabriela-Colace) 2 tablet PO DAILY [facility] Last Admin: 05/27/17 11:34 Dose: 2 tablet Assessment/Plan Acute right inferior cerebellar and right MCP infarct- athero-embolic possible Plan - PT for gait stability - OT for ADLs - Speech therapy - Analgesics as needed for pain - Bowel protocol - Stroke- ASA/Plavix for 1 month, then switch to single AP, on Lipitor 80 mg PO q hs - TN- continue amlodipine, HCTZ and Cozaar - HLD- Lipitor 80 mg PO q hs - DVT prophylaxis => ASA, and Plavix, SCDs, Lele rodriguez - Recommend 30 day event recorder as outpatient - Check LDL and Hba1c - Goal Hba1c <7%, LDL <70%
--- NOTE | 2017-05-27 14:21 | PN.NEURO_ITS ---
Subjective: Patient seen and examined, No acute issue overnight. Patient tolerating therapy. Denies any Shortness of breath or chest pains. No issues with GI/ . - Physical Exam General: Alert, Oriented x3, Cooperative HEENT: Atraumatic, PERRLA, EOMI, Normocephalic Neck: Supple, No JVD, Negative Carotid Bruits Lungs: Clear to auscultation, Normal air movement Cardiovascular: Regular rate, No murmurs Abdomen: Bowel Sounds Present, Soft, Non Tender Extremities: No edema, Capillary Refill Less than 3 Seconds Skin: No rashes, No breakdown Musculoskeletal: No Tenderness to Palpation of Joints or Extremities Neurological: Cranial nerves II-XII grossly intact Psych/Mental Status: Normal Affect, Appropriate Vital Signs Temp Pulse Resp BP Pulse Ox 98.0 F 110 H 20 H 148/87 H 95 05/27/17 08:13 05/27/17 11:35 05/27/17 08:13 05/27/17 11:35 05/27/17 11:00 Oxygen Delivery Method Room Air Weight: 94.1 kg Body Mass Index (BMI) 29.7 Intake and Output for Last 24 Hours 05/25/17 05/26/17 05/27/17 23:59 23:59 23:59 Intake Total 360 / 360 480 / 480 480 / 480 Balance 360 / 360 480 / 480 480 / 480 Laboratory Tests Past 24 Hrs 05/27/17 05/27/17 05:47 05:47 WBC 8.5 RBC 5.11 Hgb 15.7 Hct 45.7 MCV 89.4 MCH 30.7 MCHC 34.4 RDW 13.8 RDW Differential 44.6 H Plt Count 272 MPV 11.4 Immature Gran % (Auto) 0.200 Neut % (Auto) 51.7 Lymph % (Auto) 32.3 [place] % (Auto) 10.8 H Eos % (Auto) 4.5 Baso % (Auto) 0.5 Absolute Neuts (auto) 4.4 Absolute Lymphs (auto) 2.74 Total Counted Not Reportable Sodium 139 Potassium 3.3 L Chloride 103 Carbon Dioxide 25.0 Anion Gap 11 BUN 37 H Creatinine 1.10 Estim Creat Clear Calc 67.29 Est GFR (MDRD) Af Amer 86 Est GFR (MDRD) Non-Af 71 BUN/Creatinine Ratio 33.6 H Glucose 89 Calcium 8.8 Phosphorus 4.1 Magnesium 2.0 Total Bilirubin 0.80 AST 20 ALT 27 Alkaline Phosphatase 68 Total Protein 6.9 Albumin 3.2 L Globulin 3.7 Albumin/Globulin Ratio 0.9 Active Medications Acetaminophen (Tylenol) 650 mg PO Q8H PRN PRN Reason: PAIN Al Hydroxide/Mg Hydroxide (Mylanta Ii) 30 ml PO Q6H PRN PRN PRN Reason: Gastric burning Amlodipine Besylate (Norvasc) 10 mg PO DAILY [facility] Last Admin: 05/27/17 11:34 Dose: 10 mg Aspirin (Aspirin, Baby) 81 mg PO DAILY@0800 [facility] Last Admin: 05/27/17 11:34 Dose: 81 mg Atorvastatin Calcium (Lipitor) 80 mg PO QHS [facility] Last Admin: 05/26/17 20:08 Dose: 80 mg Bisacodyl (Dulcolax) 10 mg RECTAL .PRN X 1 PRN PRN Reason: Constipation Cholecalciferol ([facility]itamin [facility]) [facility] Admin: 05/27/17 11:34 Dose: 2,000 unit Clopidogrel Bisulfate (Plavix) 75 mg PO DAILY [facility] Last Admin: 05/27/17 11:34 Dose: 75 mg Enoxaparin Sodium (Lovenox) 40 mg SC DAILY@0600 [facility] Last Admin: 05/27/17 05:37 Dose: 40 mg Hydrochlorothiazide (Hctz) 25 mg PO DAILY [facility] Last Admin: 05/27/17 11:34 Dose: 25 mg Losartan Potassium (Cozaar) 100 mg PO DAILY [facility] Last Admin: 05/27/17 11:34 Dose: 100 mg Magnesium Hydroxide (Milk Of Magnesia) 30 ml PO .PRN X 1 PRN PRN Reason: Constipation Magnesium Oxide (Mag-Ox 400) [facility] Last Admin: 05/27/17 11:34 Dose: 400 mg Metoprolol Tartrate (Lopressor (Beta Óscar)) 25 mg PO BID [facility] Last Admin: 05/27/17 11:35 Dose: 25 mg Multivitamins (Multivitamin) 1 tablet PO DAILY@0800 [facility] Last Admin: 05/27/17 11:34 Dose: 1 tablet Nystatin (Nystatin) 500,000 unit PO 4X/DAY [facility] Last Admin: 05/27/17 11:34 Dose: 500,000 unit Ondansetron HCl (Zofran Odt) 4 mg PO Q8H PRN PRN PRN Reason: NAUSEA Senna/Docusate Sodium (Senokot-S, Gabriela-Colace) 2 tablet PO DAILY [facility] Last Admin: 05/27/17 11:34 Dose: 2 tablet Assessment/Plan Acute right inferior cerebellar and right MCP infarct- athero-embolic possible Plan - PT for gait stability - OT for ADLs - Speech therapy - Analgesics as needed for pain - Bowel protocol - Stroke- ASA/Plavix for 1 month, then switch to single AP, on Lipitor 80 mg PO q hs - TN- continue amlodipine, HCTZ and Cozaar - HLD- Lipitor 80 mg PO q hs - DVT prophylaxis => ASA, and Plavix, SCDs, Lele rodriguez - Recommend 30 day event recorder as outpatient - Check LDL and Hba1c - Goal Hba1c <7%, LDL <70%
[2017-05-27 14:25] VITALS: BMI 29.7
[2017-05-27 21:41] VITALS: BP 144/79; PULSE 86; RESP 18; TEMP 36.5; O2SAT 94
[2017-05-27 21:45] VITALS: PULSE 86; RESP 16; O2SAT 94
[2017-05-27] MEDS: Atorvastatin Calcium 80 MG Tablet PO (21:45)
[2017-05-27 21:46] VITALS: BP 144/79; PULSE 86; BMI 29.7
--- NOTE | 2017-05-28 01:55 | NURSING ---
Reviewed and agree with [employer] documentation.
[2017-05-28] MEDS: Enoxaparin 40 MG/0.4 ML Syringe SC (06:13)
[2017-05-28 08:05] VITALS: BP 148/91; PULSE 95; RESP 17; TEMP 36.7; O2SAT 94
[2017-05-28] MEDS: amLODIPine 10 MG Tablet PO (09:39)
[2017-05-28] MEDS: Senna/Docusate Sodium 1 Tablet 2 TABLET PO (09:39)
[2017-05-28 09:40] VITALS: BP 148/91; PULSE 95
[2017-05-28] MEDS: hydroCHLOROthiazide 25 MG Tablet PO (09:40)
[2017-05-28] MEDS: Clopidogrel Bisulfate 75 MG Tablet PO (09:40)
[2017-05-28] MEDS: Metoprolol Tartrate 25 MG Tablet PO ×2 (09:40→20:55)
[2017-05-28] MEDS: Losartan Potassium 100 MG Tablet PO (09:40)
[2017-05-28] MEDS: Magnesium Oxide 400 MG Tablet PO (09:40)
[2017-05-28] MEDS: Aspirin 81 MG TAB.CHEW PO (09:41)
[2017-05-28] MEDS: Multivitamins,Therapeutic Tablet 1 TABLET PO (09:41)
[2017-05-28 09:50] VITALS: BMI 29.7
[2017-05-28 20:45] VITALS: BP 122/70; PULSE 84; RESP 18; TEMP 36.6; O2SAT 95
[2017-05-28 20:46] VITALS: BMI 29.7
[2017-05-28] MEDS: Atorvastatin Calcium 80 MG Tablet PO (20:54)
[2017-05-28 20:55] VITALS: BP 122/70; PULSE 84
[2017-05-28 22:00] VITALS: PULSE 84; RESP 18; O2SAT 95
--- NOTE | 2017-05-29 00:44 | NURSING ---
REVIEWED AND AGREE WITH [employer] DOCUMENTATION.
[2017-05-29] MEDS: Enoxaparin 40 MG/0.4 ML Syringe SC (05:16)
[2017-05-29 08:11] VITALS: BP 131/90; PULSE 81; RESP 17; TEMP 36.4; O2SAT 96
[2017-05-29] MEDS: Clopidogrel Bisulfate 75 MG Tablet PO (09:40)
[2017-05-29] MEDS: Multivitamins,Therapeutic Tablet 1 TABLET PO (09:40)
[2017-05-29] MEDS: Aspirin 81 MG TAB.CHEW PO (09:40)
[2017-05-29] MEDS: Magnesium Oxide 400 MG Tablet PO (09:40)
[2017-05-29] MEDS: Losartan Potassium 100 MG Tablet PO (09:40)
[2017-05-29] MEDS: hydroCHLOROthiazide 25 MG Tablet PO (09:40)
[2017-05-29 09:42] VITALS: PULSE 81
[2017-05-29] MEDS: amLODIPine 10 MG Tablet PO (09:42)
[2017-05-29] MEDS: Metoprolol Tartrate 25 MG Tablet PO ×2 (09:42→21:23)
--- NOTE | 2017-05-29 09:53 | PN.NEURO_ITS ---
Subjective: Patient seen and examined. No acute events overnight. Tolerating therapy. Denies any shortness of breath, or chest pains. No issues with GI/. - Physical Exam General: Alert, Oriented x3, Cooperative HEENT: Atraumatic, PERRLA, EOMI, Normocephalic Neck: Supple, No JVD, Negative Carotid Bruits Lungs: Clear to auscultation, Normal air movement Cardiovascular: Regular rate, No murmurs Abdomen: Bowel Sounds Present, Soft, Non Tender Extremities: No edema, Capillary Refill Less than 3 Seconds Skin: No rashes, No breakdown Musculoskeletal: No Tenderness to Palpation of Joints or Extremities Neurological: Cranial nerves II-XII grossly intact Psych/Mental Status: Normal Affect, Appropriate Vital Signs Temp Pulse Resp BP Pulse Ox 97.6 F L 81 17 131/90 H 96 05/29/17 08:11 05/29/17 09:42 05/29/17 08:11 05/29/17 08:11 05/29/17 08:11 Oxygen Delivery Method Room Air Weight: 94.2 kg Body Mass Index (BMI) 29.7 Intake and Output for Last 24 Hours 05/27/17 05/28/17 05/29/17 23:59 23:59 23:59 Intake Total 800 / 800 720 / 720 320 / 320 Balance 800 / 800 720 / 720 320 / 320 Active Medications Acetaminophen (Tylenol) 650 mg PO Q8H PRN PRN Reason: PAIN Al Hydroxide/Mg Hydroxide (Mylanta Ii) 30 ml PO Q6H PRN PRN PRN Reason: Gastric burning Amlodipine Besylate (Norvasc) 10 mg PO DAILY [facility] Last Admin: 05/29/17 09:42 Dose: 10 mg Aspirin (Aspirin, Baby) 81 mg PO DAILY@0800 [facility] Last Admin: 05/29/17 09:40 Dose: 81 mg Atorvastatin Calcium (Lipitor) 80 mg PO QHS [facility] Last Admin: 05/28/17 20:54 Dose: 80 mg Bisacodyl (Dulcolax) 10 mg RECTAL .PRN X 1 PRN PRN Reason: Constipation [facility]ole[facility]) [facility] Last Admin: 05/29/17 09:40 Dose: 2,000 unit Clopidogrel Bisulfate (Plavix) 75 mg PO DAILY [facility] Last Admin: 05/29/17 09:40 Dose: 75 mg Enoxaparin Sodium (Lovenox) 40 mg SC DAILY@0600 [facility] Last Admin: 05/29/17 05:16 Dose: 40 mg Hydrochlorothiazide (Hctz) 25 mg PO DAILY [facility] Last Admin: 05/29/17 09:40 Dose: 25 mg Losartan Potassium (Cozaar) 100 mg PO DAILY [facility] Last Admin: 05/29/17 09:40 Dose: 100 mg Magnesium Hydroxide (Milk Of Magnesia) 30 ml PO .PRN X 1 PRN PRN Reason: Constipation Magnesium Oxide (Mag-Ox 400) [facility] Last Admin: 05/29/17 09:40 Dose: 400 mg Metoprolol Tartrate (Lopressor (Beta Óscar)) 25 mg PO BID [facility] Last Admin: 05/29/17 09:42 Dose: 25 mg Multivitamins (Multivitamin) 1 tablet PO DAILY@0800 [facility] Last Admin: 05/29/17 09:40 Dose: 1 tablet Ondansetron HCl (Zofran Odt) 4 mg PO Q8H PRN PRN PRN Reason: NAUSEA Potassium Chloride (K-Dur) [facility] Stop: 05/30/17 08:01 Last Admin: 05/28/17 09:39 Dose: 40 meq Senna/Docusate Sodium (Senokot-S, Gabriela-Colace) 2 tablet PO DAILY [facility] Last Admin: 05/29/17 09:43 Dose: Not Given Assessment/Plan Acute right inferior cerebellar and right MCP infarct- athero-embolic possible Plan - PT for gait stability - OT for ADLs - Speech therapy - Analgesics as needed for pain - Bowel protocol - Stroke- ASA/Plavix for 1 month, then switch to single AP, on Lipitor 80 mg PO q hs - TN- continue amlodipine, HCTZ and Cozaar - HLD- Lipitor 80 mg PO q hs - DVT prophylaxis => ASA, and Plavix, SCDs, Lele rodriguez - Recommend 30 day event recorder as outpatient - Check LDL and Hba1c - Goal Hba1c <7%, LDL <70%
[2017-05-29 11:06] VITALS: BMI 29.7
[2017-05-29 19:59] VITALS: BP 125/75; PULSE 88; RESP 16; TEMP 36.4; O2SAT 94
[2017-05-29 21:23] VITALS: BP 125/75; PULSE 88
[2017-05-29] MEDS: Atorvastatin Calcium 80 MG Tablet PO (21:23)
[2017-05-29 21:30] VITALS: BMI 29.7
[2017-05-30] MEDS: Mag Hydrox/Al Hydrox/Simeth 30 ML UDC PO (01:45)
--- NOTE | 2017-05-30 02:50 | NURSING ---
REVIEWED AND AGREE WITH CLINIC LPN'S FIM AND HANDOFF CHARTING.
[2017-05-30] MEDS: Enoxaparin 40 MG/0.4 ML Syringe SC (05:56)
[2017-05-30 08:48] VITALS: BP 131/90; PULSE 107
[2017-05-30] MEDS: Multivitamins,Therapeutic Tablet 1 TABLET PO (08:48)
[2017-05-30] MEDS: Clopidogrel Bisulfate 75 MG Tablet PO (08:48)
[2017-05-30] MEDS: Metoprolol Tartrate 25 MG Tablet PO ×2 (08:48→20:39)
[2017-05-30] MEDS: hydroCHLOROthiazide 25 MG Tablet PO (08:48)
[2017-05-30] MEDS: Magnesium Oxide 400 MG Tablet PO (08:48)
[2017-05-30] MEDS: Losartan Potassium 100 MG Tablet PO (08:48)
[2017-05-30] MEDS: Aspirin 81 MG TAB.CHEW PO (08:48)
[2017-05-30] MEDS: amLODIPine 10 MG Tablet PO (08:48)
[2017-05-30 09:10] VITALS: BP 131/90; PULSE 107; RESP 18; TEMP 36.4; O2SAT 95
--- NOTE | 2017-05-30 09:46 | CASEMGMT ---
Team meeting held. Patient present, no support person present. Patient declining for this social sciences instructor to contact family in regards to a team update. Patient reporting to be able to notify family. Patient approved 15 Medicare Days with a discharge on or before 06/08/17. Collaborating with team and patient, discharge date has been set for 06/03/17. Patient plans to return home alone. Therapy has no further recommendations at this time. Patients does have family and neighbors/friends as a support system. Support given. Proposed discharge date: 06/03/17 PLAN: Discharge home alone. Shima HARDY, TEXTILE TECHNICAL OFFICER
--- NOTE | 2017-05-30 12:20 | PCM.PN.NEU ---
Subjective: Staffed in team meeting. No family at bedside. Questions answered. With Physical therapy, the patient is able to ambulate greater than 300 to 400 feet. He is ambulating up and down stair all at the supervise level. With Occupational therapy he is setup and distance supervision for personal care. He is able to do transfers at supervision, he does not need any help getting in and out of bed. With nursing, they did Blood pressure and stroke prevention and teaching on Saturday the . The staff feels he is doing well and will do well when he goes home. He does not require any outpatient Physical or Occupational therapy when he is discharge home. He may start to drive in 3 to 4 weeks, if he desires to, he may use his stationary bike for at least 15 to 20 minutes a day when he starts back exercising and gradually increasing his time over the next 2 to 3 months. Recommend an outpatient 30 day heart monitor on discharge. He will follow up with us in the Neurology department in 4 to 6 weeks. The plan is for his discharge on Saturday, will make him MOD I on Saturday in preparation. - Physical Exam General: Alert, Oriented x3, Cooperative HEENT: Atraumatic, PERRLA, EOMI, Normocephalic Neck: Supple, No JVD, Negative Carotid Bruits Lungs: Clear to auscultation, Normal air movement Cardiovascular: Regular rate, No murmurs Abdomen: Bowel Sounds Present, Soft, Non Tender Extremities: No edema, Capillary Refill Less than 3 Seconds Skin: No rashes, No breakdown Musculoskeletal: No Tenderness to Palpation of Joints or Extremities Neurological: Cranial nerves II-XII grossly intact Psych/Mental Status: Normal Affect, Appropriate Vital Signs Temp Pulse Resp BP Pulse Ox 97.5 F L 107 H 18 131/90 H 95 05/30/17 09:10 05/30/17 09:10 05/30/17 09:10 05/30/17 09:10 05/30/17 09:10 Oxygen Delivery Method Room Air Weight: 94.2 kg Body Mass Index (BMI) 29.7 Intake and Output for Last 24 Hours 05/28/17 05/29/17 05/30/17 23:59 23:59 23:59 Intake Total 720 / 720 880 / 880 240 / 240 Balance 720 / 720 880 / 880 240 / 240 Laboratory Tests Past 24 Hrs 05/30/17 05:35 Potassium 3.0 L Active Medications Acetaminophen (Tylenol) 650 mg PO Q8H PRN PRN Reason: PAIN Al Hydroxide/Mg Hydroxide (Mylanta Ii) 30 ml PO Q6H PRN PRN PRN Reason: Gastric burning Last Admin: 05/30/17 01:45 Dose: 30 ml Amlodipine Besylate (Norvasc) 10 mg PO DAILY [facility] Last Admin: 05/30/17 08:48 Dose: 10 mg Aspirin (Aspirin, Baby) 81 mg PO DAILY@0800 [facility] Last Admin: 05/30/17 08:48 Dose: 81 mg Atorvastatin Calcium (Lipitor) 80 mg PO QHS [facility] Last Admin: 05/29/17 21:23 Dose: 80 mg Bisacodyl (Dulcolax) 10 mg RECTAL .PRN X 1 PRN PRN Reason: Constipation Cholecalciferol ([facility]itamin [facility]) [facility] Admin: 05/29/17 09:40 Dose: 2,000 unit Clopidogrel Bisulfate (Plavix) 75 mg PO DAILY [facility] Last Admin: 05/30/17 08:48 Dose: 75 mg Enoxaparin Sodium (Lovenox) 40 mg SC DAILY@0600 [facility] Last Admin: 05/30/17 05:56 Dose: 40 mg Hydrochlorothiazide (Hctz) 25 mg PO DAILY [facility] Last Admin: 05/30/17 08:48 Dose: 25 mg Losartan Potassium (Cozaar) 100 mg PO DAILY [facility] Last Admin: 05/30/17 08:48 Dose: 100 mg Magnesium Hydroxide (Milk Of Magnesia) 30 ml PO .PRN X 1 PRN PRN Reason: Constipation Magnesium Oxide (Mag-Ox 400) [facility] Last Admin: 05/30/17 08:48 Dose: 400 mg Metoprolol Tartrate (Lopressor (Beta Óscar)) 25 mg PO BID [facility] Last Admin: 05/30/17 08:48 Dose: 25 mg Multivitamins (Multivitamin) 1 tablet PO DAILY@0800 [facility] Last Admin: 05/30/17 08:48 Dose: 1 tablet Ondansetron HCl (Zofran Odt) 4 mg PO Q8H PRN PRN PRN Reason: NAUSEA Potassium Chloride (K-Dur) [facility] Senna/Docusate Sodium (Senokot-S, Gabriela-Colace) 2 tablet PO DAILY [facility] Last Admin: 05/30/17 08:49 Dose: Not Given Assessment/Plan 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
[2017-05-30 16:20] VITALS: BMI 29.7
[2017-05-30 20:39] VITALS: BP 119/75; PULSE 66
[2017-05-30] MEDS: Atorvastatin Calcium 80 MG Tablet PO (20:39)
[2017-05-30 20:42] VITALS: BP 119/75; PULSE 66; RESP 18; TEMP 36.6; O2SAT 94
[2017-05-30 23:11] VITALS: BMI 29.7
[2017-05-31] MEDS: Enoxaparin 40 MG/0.4 ML Syringe SC (06:17)
--- NOTE | 2017-05-31 06:23 | NURSING ---
reviewed and agree with COLLEGE ATHLETIC DIRECTOR notes and assessments.
[2017-05-31 09:22] VITALS: BP 136/74; PULSE 59
[2017-05-31] MEDS: Clopidogrel Bisulfate 75 MG Tablet PO (09:22)
[2017-05-31] MEDS: Multivitamins,Therapeutic Tablet 1 TABLET PO (09:22)
[2017-05-31] MEDS: amLODIPine 10 MG Tablet PO (09:22)
[2017-05-31] MEDS: Losartan Potassium 100 MG Tablet PO (09:22)
[2017-05-31] MEDS: Metoprolol Tartrate 25 MG Tablet PO ×2 (09:22→21:01)
[2017-05-31] MEDS: Aspirin 81 MG TAB.CHEW PO (09:23)
[2017-05-31] MEDS: hydroCHLOROthiazide 25 MG Tablet PO (09:23)
[2017-05-31] MEDS: Magnesium Oxide 400 MG Tablet PO (09:23)
[2017-05-31 10:00] VITALS: BP 143/86; PULSE 102; RESP 18; TEMP 36.3; O2SAT 94
[2017-05-31 10:47] VITALS: BMI 29.7
--- NOTE | 2017-05-31 12:55 | PCM.PN.NEU ---
Subjective: Patient seen during Physical therapy session. No acute events overnight. Tolerating therapy. Will be discharged home on Saturday, if he remains stable. - Physical Exam General: Alert, Oriented x3, Cooperative HEENT: Atraumatic, PERRLA, EOMI, Normocephalic Neck: Supple, No JVD, Negative Carotid Bruits Lungs: Clear to auscultation, Normal air movement Cardiovascular: Regular rate, No murmurs Abdomen: Bowel Sounds Present, Soft, Non Tender Extremities: No edema, Capillary Refill Less than 3 Seconds Skin: No rashes, No breakdown Musculoskeletal: No Tenderness to Palpation of Joints or Extremities Neurological: Cranial nerves II-XII grossly intact Psych/Mental Status: Normal Affect, Appropriate Vital Signs Temp Pulse Resp BP Pulse Ox 97.4 F L 102 H 18 143/86 H 94 05/31/17 10:00 05/31/17 10:00 05/31/17 10:00 05/31/17 10:00 05/31/17 10:00 Oxygen Delivery Method Room Air Weight: 94.2 kg Body Mass Index (BMI) 29.7 Intake and Output for Last 24 Hours 05/29/17 05/30/17 05/31/17 23:59 23:59 23:59 Intake Total 880 / 880 720 / 720 320 / 320 Balance 880 / 880 720 / 720 320 / 320 Active Medications Acetaminophen (Tylenol) 650 mg PO Q8H PRN PRN Reason: PAIN Al Hydroxide/Mg Hydroxide (Mylanta Ii) 30 ml PO Q6H PRN PRN PRN Reason: Gastric burning Last Admin: 05/30/17 01:45 Dose: 30 ml Amlodipine Besylate (Norvasc) 10 mg PO DAILY [facility] Last Admin: 05/31/17 09:22 Dose: 10 mg Aspirin (Aspirin, Baby) 81 mg PO DAILY@0800 [facility] Last Admin: 05/31/17 09:23 Dose: 81 mg Atorvastatin Calcium (Lipitor) 80 mg PO QHS [facility] Last Admin: 05/30/17 20:39 Dose: 80 mg Bisacodyl (Dulcolax) 10 mg RECTAL .PRN X 1 PRN PRN Reason: Constipation Cholecalciferol ([facility]itamin [facility]) [facility] Last Admin: 05/31/17 09:22 Dose: 2,000 unit Clopidogrel Bisulfate (Plavix) 75 mg PO DAILY [facility] Last Admin: 05/31/17 09:22 Dose: 75 mg Enoxaparin Sodium (Lovenox) 40 mg SC DAILY@0600 [facility] Last Admin: 05/31/17 06:17 Dose: 40 mg Hydrochlorothiazide (Hctz) 25 mg PO DAILY [facility] Last Admin: 05/31/17 09:23 Dose: 25 mg Losartan Potassium (Cozaar) 100 mg PO DAILY [facility] Last Admin: 05/31/17 09:22 Dose: 100 mg Magnesium Hydroxide (Milk Of Magnesia) 30 ml PO .PRN X 1 PRN PRN Reason: Constipation Magnesium Oxide (Mag-Ox 400) 400 mg PO DAILYCM [facility] Last Admin: 05/31/17 09:23 Dose: 400 mg Metoprolol Tartrate (Lopressor (Beta Óscar)) 25 mg PO BID [facility] Last Admin: 05/31/17 09:22 Dose: 25 mg Multivitamins (Multivitamin) 1 tablet PO DAILY@0800 [facility] Last Admin: 05/31/17 09:22 Dose: 1 tablet Ondansetron HCl (Zofran Odt) 4 mg PO Q8H PRN PRN PRN Reason: NAUSEA Potassium Chloride (K-Dur) [facility] Last Admin: 05/31/17 09:22 Dose: 40 meq Senna/Docusate Sodium (Senokot-S, Gabriela-Colace) 2 tablet PO DAILY [facility] Last Admin: 05/31/17 09:20 Dose: Not Given Assessment/Plan 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
--- NOTE | 2017-05-31 12:58 | PN.NEURO_ITS ---
Subjective: Patient seen during Physical therapy session. No acute events overnight. Tolerating therapy. Will be discharged home on Saturday, if he remains stable. - Physical Exam General: Alert, Oriented x3, Cooperative HEENT: Atraumatic, PERRLA, EOMI, Normocephalic Neck: Supple, No JVD, Negative Carotid Bruits Lungs: Clear to auscultation, Normal air movement Cardiovascular: Regular rate, No murmurs Abdomen: Bowel Sounds Present, Soft, Non Tender Extremities: No edema, Capillary Refill Less than 3 Seconds Skin: No rashes, No breakdown Musculoskeletal: No Tenderness to Palpation of Joints or Extremities Neurological: Cranial nerves II-XII grossly intact Psych/Mental Status: Normal Affect, Appropriate Vital Signs Temp Pulse Resp BP Pulse Ox 97.4 F L 102 H 18 143/86 H 94 05/31/17 10:00 05/31/17 10:00 05/31/17 10:00 05/31/17 10:00 05/31/17 10:00 Oxygen Delivery Method Room Air Weight: 94.2 kg Body Mass Index (BMI) 29.7 Intake and Output for Last 24 Hours 05/29/17 05/30/17 05/31/17 23:59 23:59 23:59 Intake Total 880 / 880 720 / 720 320 / 320 Balance 880 / 880 720 / 720 320 / 320 Active Medications Acetaminophen (Tylenol) 650 mg PO Q8H PRN PRN Reason: PAIN Al Hydroxide/Mg Hydroxide (Mylanta Ii) 30 ml PO Q6H PRN PRN PRN Reason: Gastric burning Last Admin: 05/30/17 01:45 Dose: 30 ml Amlodipine Besylate (Norvasc) 10 mg PO DAILY [facility] Last Admin: 05/31/17 09:22 Dose: 10 mg Aspirin (Aspirin, Baby) 81 mg PO DAILY@0800 [facility] Last Admin: 05/31/17 09:23 Dose: 81 mg Atorvastatin Calcium (Lipitor) 80 mg PO QHS [facility] Last Admin: 05/30/17 20:39 Dose: 80 mg Bisacodyl (Dulcolax) 10 mg RECTAL .PRN X 1 PRN PRN Reason: Constipation Cholecalciferol (Vitamin D) [facility] Last Admin: 05/31/17 09:22 Dose: 2,000 unit Clopidogrel Bisulfate (Plavix) 75 mg PO DAILY [facility] Last Admin: 05/31/17 09:22 Dose: 75 mg Enoxaparin Sodium (Lovenox) 40 mg SC DAILY@0600 [facility] Last Admin: 05/31/17 06:17 Dose: 40 mg Hydrochlorothiazide (Hctz) 25 mg PO DAILY [facility] Last Admin: 05/31/17 09:23 Dose: 25 mg Losartan Potassium (Cozaar) 100 mg PO DAILY [facility] Last Admin: 05/31/17 09:22 Dose: 100 mg Magnesium Hydroxide (Milk Of Magnesia) 30 ml PO .PRN X 1 PRN PRN Reason: Constipation Magnesium Oxide (Mag-Ox 400) 400 mg PO DAILYCM [facility] Last Admin: 05/31/17 09:23 Dose: 400 mg Metoprolol Tartrate (Lopressor (Beta Óscar)) 25 mg PO BID [facility] Last Admin: 05/31/17 09:22 Dose: 25 mg Multivitamins (Multivitamin) 1 tablet PO DAILY@0800 [facility] Last Admin: 05/31/17 09:22 Dose: 1 tablet Ondansetron HCl (Zofran Odt) 4 mg PO Q8H PRN PRN PRN Reason: NAUSEA Potassium Chloride (K-Dur) 40 [facility] Last Admin: 05/31/17 09:22 Dose: 40 meq Senna/Docusate Sodium (Senokot-S, Gabriela-Colace) 2 tablet PO DAILY [facility] Last Admin: 05/31/17 09:20 Dose: Not Given Assessment/Plan 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
--- NOTE | 2017-05-31 14:53 | NURSING ---
Called Yudi at [facility] asking for appt for 30 day even monitor she stated they will call us back with date and time.
--- NOTE | 2017-05-31 17:23 | NURSING ---
Dr Her telephoned and ordered 30-day monitor f
--- NOTE | 2017-05-31 17:23 | NURSING ---
Dr. Her telephone ordered the heart monitor for 06/03. Call [phone] with questions.
[2017-05-31 21:01] VITALS: PULSE 68
[2017-05-31] MEDS: Atorvastatin Calcium 80 MG Tablet PO (21:01)
[2017-05-31 21:04] VITALS: BP 132/82; PULSE 104; RESP 18; TEMP 36.7; O2SAT 95; BMI 29.7
--- NOTE | 2017-06-01 02:25 | NURSING ---
Reviewed and agree with FISH ICER documentation.
[2017-06-01] MEDS: Enoxaparin 40 MG/0.4 ML Syringe SC (06:32)
[2017-06-01 07:49] VITALS: PULSE 80
[2017-06-01] MEDS: Clopidogrel Bisulfate 75 MG Tablet PO (07:49)
[2017-06-01] MEDS: Magnesium Oxide 400 MG Tablet PO (07:49)
[2017-06-01] MEDS: hydroCHLOROthiazide 25 MG Tablet PO (07:49)
[2017-06-01] MEDS: Metoprolol Tartrate 25 MG Tablet PO ×2 (07:49→21:23)
[2017-06-01] MEDS: Aspirin 81 MG TAB.CHEW PO (07:52)
[2017-06-01] MEDS: Losartan Potassium 100 MG Tablet PO (07:53)
[2017-06-01] MEDS: Multivitamins,Therapeutic Tablet 1 TABLET PO (07:53)
[2017-06-01] MEDS: amLODIPine 10 MG Tablet PO (07:54)
[2017-06-01 08:28] VITALS: BP 134/64; PULSE 78; RESP 18; TEMP 36.2; O2SAT 96
[2017-06-01 14:01] VITALS: BMI 29.7
[2017-06-01 21:23] VITALS: BP 138/74; PULSE 72; PULSE 96; RESP 18; TEMP 36.6; O2SAT 97; BMI 29.7
[2017-06-01] MEDS: Atorvastatin Calcium 80 MG Tablet PO (21:23)
[2017-06-02] MEDS: Enoxaparin 40 MG/0.4 ML Syringe SC (06:39)
[2017-06-02 08:38] VITALS: BP 130/82; PULSE 90; RESP 18; TEMP 36.8; O2SAT 97
[2017-06-02] MEDS: Clopidogrel Bisulfate 75 MG Tablet PO (08:40)
[2017-06-02] MEDS: Multivitamins,Therapeutic Tablet 1 TABLET PO (08:40)
[2017-06-02] MEDS: Losartan Potassium 100 MG Tablet PO (08:40)
[2017-06-02] MEDS: Aspirin 81 MG TAB.CHEW PO (08:40)
[2017-06-02 08:41] VITALS: PULSE 90
[2017-06-02] MEDS: Metoprolol Tartrate 25 MG Tablet PO ×2 (08:41→19:37)
[2017-06-02] MEDS: Magnesium Oxide 400 MG Tablet PO (08:41)
[2017-06-02] MEDS: hydroCHLOROthiazide 25 MG Tablet PO (08:41)
[2017-06-02] MEDS: amLODIPine 10 MG Tablet PO (08:41)
[2017-06-02 09:47] VITALS: BMI 29.7
--- NOTE | 2017-06-02 16:29 | NURSING ---
patient independent this shift, gait steady.
[2017-06-02 19:20] VITALS: BP 119/74; PULSE 77; RESP 16; TEMP 36.4; O2SAT 93; BMI 29.7
[2017-06-02 19:37] VITALS: BP 119/74; PULSE 77
[2017-06-02] MEDS: Atorvastatin Calcium 80 MG Tablet PO (19:38)
--- NOTE | 2017-06-03 00:33 | NURSING ---
REVIEWED AND AGREE WITH PAINTER SIGN MAINTENANCE'S FIM AND HANDOFF CHARTING.
[2017-06-03] MEDS: Enoxaparin 40 MG/0.4 ML Syringe SC (06:02)
[2017-06-03 06:19] LABS: Potassium 3.4 mmol/L (3.5-5.1)
[2017-06-03 08:01] VITALS: BP 124/80; PULSE 104; RESP 18; TEMP 36.6; O2SAT 98
[2017-06-03] MEDS: hydroCHLOROthiazide 25 MG Tablet PO (08:02)
[2017-06-03] MEDS: amLODIPine 10 MG Tablet PO (08:02)
[2017-06-03] MEDS: Losartan Potassium 100 MG Tablet PO (08:02)
[2017-06-03] MEDS: Clopidogrel Bisulfate 75 MG Tablet PO (08:02)
[2017-06-03] MEDS: Multivitamins,Therapeutic Tablet 1 TABLET PO (08:02)
[2017-06-03 08:03] VITALS: PULSE 104
[2017-06-03] MEDS: Magnesium Oxide 400 MG Tablet PO (08:03)
[2017-06-03] MEDS: Metoprolol Tartrate 25 MG Tablet PO (08:03)
[2017-06-03] MEDS: Aspirin 81 MG TAB.CHEW PO (08:03)
[2017-06-03 09:28] VITALS: BMI 29.7
--- NOTE | 2017-06-03 10:02 | NURSING ---
[address] on by cardiovascular
--- NOTE | 2017-06-03 10:30 | PCM.DC ---
- Discharge Diagnoses Reason(s) for Visit for Discharge Instructions: CVA You will use the following diet at home:: Regular Your food should be the consistency of: Regular Your liquids should be the consistency of: Regular/Thin Discharge Activity: May Not Drive - Until cleared by Neurology, May Shower, May Take a Tub Bath Weight Bearing Status: Full weight bearing Call your doctor if you observe: Fever of 101 or Higher, Coldness, Increased Pain, Numbness or Tingling, Change in Color, Inability to urinate, Inability to have a bowel movement, Using more than one pad per hour, Shortness of breath, Dizziness, Fainting spells, Swelling in the ankles, Chest pain, Prolonged hiccoughing, Increased palpitations (irregular heartbeat), Calf discomfort, Uncontrolled pain Allergies/Adverse Reactions: Allergies carbamazepine [From Tegretol] Allergy (Verified 05/22/17 15:33) HIGH FEVER AND RASH Medications to take at Discharge Multivitamin [Daily Multiple Vitamin] 1 each PO DAILY 05/22/17 Tadalafil [Cialis] 5 mg PO DAILY PRN 05/22/17 Acetaminophen [Tylenol Tablet] 650 mg PO Q8 PRN 05/24/17 Aspirin [Aspirin, Baby] 81 mg PO DAILY@0800 05/24/17 Zolpidem Tartrate [Ambien] 5 mg PO QHS PRN PRN tablet 05/24/17 Amlodipine [Norvasc] 10 mg PO DAILY #30 tab 06/03/17 Atorvastatin Calcium [Lipitor] 80 mg PO QHS #30 tab 06/03/17 Cholecalciferol (Vitamin D3) [Vitamin D3] 2,000 unit PO DAILY #30 cap 06/03/17 Clopidogrel Bisulfate [Plavix] 75 mg PO DAILY #30 tab 06/03/17 Hydrochlorothiazide [Hctz] 25 mg PO DAILY #30 tab 06/03/17 Losartan Potassium [Cozaar] 100 mg PO DAILY #30 tab 06/03/17 Magnesium Oxide [Mag-Ox 400] 400 mg PO DAILYCM #30 tab 06/03/17 Metoprolol Tartrate [Lopressor (beta yeny)] 25 mg PO BID #60 tab 06/03/17 Potassium Chloride [K-Dur] 40 meq PO DAILYCM #30 tab 06/03/17 The following prescriptions were given: Amlodipine [Norvasc] 10 mg PO DAILY #30 tab Atorvastatin Calcium [Lipitor] 80 mg PO QHS #30 tab Cholecalciferol (Vitamin D3) [Vitamin D3] 2,000 unit PO DAILY #30 cap Clopidogrel Bisulfate [Plavix] 75 mg PO DAILY #30 tab Hydrochlorothiazide [Hctz] 25 mg PO DAILY #30 tab Losartan Potassium [Cozaar] 100 mg PO DAILY #30 tab Magnesium Oxide [Mag-Ox 400] 400 mg PO DAILYCM #30 tab Potassium Chloride [K-Dur] 40 meq PO DAILYCM #30 tab Metoprolol Tartrate [Lopressor (beta yeny)] 25 mg PO BID #60 tab Primary Care Physician: Care Physician,No Primary [Primary Care Provider] - Please Follow Up With: Diamond Rice NP-C When: July 11, 2017 @ 1:00 pm Please Follow Up With: Ricardo Corcoran DO Please Follow Up With: Dr. Lazaro Proposed Discharge Date: 06/03/17
--- NOTE | 2017-06-03 10:39 | PCM.RU.DC ---
Rehab Discharge Summary DATE OF ADMISSION: 05/24/17 DATE OF DISCHARGE: 06/03/17 - Rehab Diagnosis CVA Discharge Diet: No Restrictions Discharge Activity: May Not Drive - Until cleared by Neurology, May Shower, May Take a Tub Bath Weight Bearing Status: Full weight bearing Call your doctor if you observe: Fever of 101 or Higher, Coldness, Increased Pain, Numbness or Tingling, Change in Color, Inability to urinate, Inability to have a bowel movement, Using more than one pad per hour, Shortness of breath, Dizziness, Fainting spells, Swelling in the ankles, Chest pain, Prolonged hiccoughing, Increased palpitations (irregular heartbeat), Calf discomfort, Uncontrolled pain Home Medications: Medications to take at Discharge Multivitamin [Daily Multiple Vitamin] 1 each PO DAILY 05/22/17 Tadalafil [Cialis] 5 mg PO DAILY PRN 05/22/17 Acetaminophen [Tylenol Tablet] 650 mg PO Q8 PRN 05/24/17 Aspirin [Aspirin, Baby] 81 mg PO DAILY@0800 05/24/17 Zolpidem Tartrate [Ambien] 5 mg PO QHS PRN PRN tablet 05/24/17 Amlodipine [Norvasc] 10 mg PO DAILY #30 tab 06/03/17 Atorvastatin Calcium [Lipitor] 80 mg PO QHS #30 tab 06/03/17 Cholecalciferol (Vitamin D3) [Vitamin D3] 2,000 unit PO DAILY #30 cap 06/03/17 Clopidogrel Bisulfate [Plavix] 75 mg PO DAILY #30 tab 06/03/17 Hydrochlorothiazide [Hctz] 25 mg PO DAILY #30 tab 06/03/17 Losartan Potassium [Cozaar] 100 mg PO DAILY #30 tab 06/03/17 Magnesium Oxide [Mag-Ox 400] 400 mg PO DAILYCM #30 tab 06/03/17 Metoprolol Tartrate [Lopressor (beta yeny)] 25 mg PO BID #60 tab 06/03/17 Potassium Chloride [K-Dur] 40 meq PO DAILYCM #30 tab 06/03/17 Following Prescrptions Were Given to Patient: Amlodipine [Norvasc] 10 mg PO DAILY #30 tab Atorvastatin Calcium [Lipitor] 80 mg PO QHS #30 tab Cholecalciferol (Vitamin D3) [Vitamin D3] 2,000 unit PO DAILY #30 cap Clopidogrel Bisulfate [Plavix] 75 mg PO DAILY #30 tab Hydrochlorothiazide [Hctz] 25 mg PO DAILY #30 tab Losartan Potassium [Cozaar] 100 mg PO DAILY #30 tab Magnesium Oxide [Mag-Ox 400] 400 mg PO DAILYCM #30 tab Potassium Chloride [K-Dur] 40 meq PO DAILYCM #30 tab Metoprolol Tartrate [Lopressor (beta yeny)] 25 mg PO BID #60 tab Primary Care Physician: Care Physician,No Primary [Primary Care Provider] - Please Follow Up With: Diamond Rice NP-C When: July 11, 2017 @ 1:00 pm Please Follow Up With: Ricardo Corcoran DO Please Follow Up With: Dr. Lazaro Disposition: Home Minutes spent on discharge:: 40 Patient Condition:: Good Rehab Course The patient is a 67 year old CM with PMH uncontrolled HTN, recently diagnosed stroke who is being admitted to [facility] with debility post acute right inferior cerebellar stroke, for > 3 hrs therapy daily with the aim of returning back to his home at or near his prior level of functional independence. Patient was admitted to [facility] with dizziness on 05/22/2017. Per patient his dizziness started about 3 days prior to admission, he felt the whole room was spinning, had wobbliness, difficulty in walking, was running into the wall and things, went to the urgent care but was sent home after treating with meclizine, complaints of nausea, denies any READ, visual disturbances, focal motor weakness or sensory loss. He was not an ivtpa candidate on admission as he was out of the window. His workup while In the PCU was as follows: MRI brain following admission showed acute right inferior cerebellar stroke and right MCP stroke. MRA head/neck right 50-69% stenosis and left ICA > 70% stenosis, with right distal vertebral artery filling defect. CTA head/neck report showed small right vert but no occlusion or thrombosis and no hemodynamic stenosis of the ICA. TTE showed EF 65%, with normal LA size with no PFO. Hba1c was 5.4 and LDL was 139. Per patient he lives alone, denies any falls, does not use cane or walker to ambulate, does drive and does not need any assistance for his ADLs. Per patient he did not take ASA every day prior to the stroke. He lives in an apartment and has 2 steps to get into the house and once in the apartment everything is at the same level and there are no steps per patient. MRI brain showed acute right inferior cerebellar stroke and right MCP stroke. MRA head/neck right 50-69% stenosis and left ICA > 70% stenosis and nonvisualization of distal right vertebral artery, thrombosis as per radiologist. CT angiogram neck and head ordered and done. Head CTA reported as Ectasia and dilatation of the left vertebral artery and dolichoectasia of the basilar tip. Atherosclerotic calcification of the cavernous portions of the internal carotid arteries bilaterally. Neck CTA reported as Ectasia of the left vertebral artery with calcific plaque in its distal portion.2D echo was done and reported EF 65% with a stage I diastolic dysfunction suggestive of chronic mild diastolic heart failure. fasting lipid profile shows LDL 139, HDL 38. TSH 1.94. With Physical therapy, the patient is able to ambulate greater than 300 to 400 feet. He is ambulating up and down stair all at the supervise level. With Occupational therapy he is setup and distance supervision for personal care. He is able to do transfers at supervision, he does not need any help getting in and out of bed. With nursing, they did Blood pressure and stroke prevention and teaching on Saturday the . The staff feels he is doing well and will do well when he goes home. He does not require any outpatient Physical or Occupational therapy when he is discharge home. He may start to drive in 3 to 4 weeks, if he desires to, he may use his stationary bike for at least 15 to 20 minutes a day when he starts back exercising and gradually increasing his time over the next 2 to 3 months. Recommend an outpatient 30 day heart monitor on discharge, and he is scheduled with Cardiac to receive one. He will follow up with us in the Neurology department in 4 to 6 weeks. Meaningful Use Info Meaningful Use Diagnoses (Choose all that apply): Ischemic CVA - CVA Therapy Assessed for PT,OT and/or ST?: Yes - Ischemic Stroke Antithrombotic order at d/c?: Yes Dx of Atrial fib/flutter?: No Anticoagulant at discharge?: No Reason anticoagulant not ordered: Treatment not Indicated Statins at discharge?: Yes Primary Dx Acute Ischemic CVA?: Yes IV tPA ordered during stay?: No Reason IV t-PA not ordered: Medical Contraindication
--- NOTE | 2017-06-03 12:15 | NURSING ---
discharge instructions reviewed, patient verbalized understanding. patient is independent with needs and transfers, gait steady.
--- NOTE | 2017-06-03 13:05 | NURSING ---
patient discharge at this time with mary.
== END 2017-06-03 13:10 | disposition home or self-care (01) | DRG 948 ==
PROVIDERS: Nurse Practitioner Acute Care; Admitting Provider Psychiatry & Neurology Neurology; Visit Provider Psychiatry & Neurology Neurology
DX: R53.81 Other malaise (principal); E78.5 Hyperlipidemia, unspecified; Z86.73 Personal history of transient ischemic attack (TIA), and cerebral infarction without residual deficits; I10 Essential (primary) hypertension; Z79.899 Other long term (current) drug therapy; Z79.02 Long term (current) use of antithrombotics/antiplatelets; Z79.82 Long term (current) use of aspirin; R42 Dizziness and giddiness; R26.0 Ataxic gait
CPT/HCPCS: 36415; 80053; 83735; 84100; 84132; 85025; 97110; 97112; 97116; 97162; 97166; 97530; 97535

== ENCOUNTER → 2017-06-27 12:54 | Outpatient (CLI) | payer MEDICARE, OTHER, SELFPAY ==
[2017-06-27 15:49] LABS: Anion Gap 5 (5-15); BUN 28 mg/dL (7-18); BUN/Creat Ratio 25.2 RATIO (10-20); Chloride 103 mmol/L (98-107); Creatinine, Serum 1.11 mg/dL (0.70-1.30); EST Glomerular Filtration Rate 70 mL/min (>60); Est Glom Filt Rate - Afr Amer 85 mL/min (>60); Glucose 93 mg/dL (74-106); Potassium 3.5 mmol/L (3.5-5.1); Sodium Level 141 mmol/L (136-145)
== END ==
PROVIDERS: Family Provider Family Medicine; PCP Family Medicine; Visit Provider Family Medicine
DX: I10 Essential (primary) hypertension (principal)
CPT/HCPCS: 36415; 80048

== ENCOUNTER → 2017-10-07 14:45 | Outpatient (CLI) | payer MEDICARE, OTHER, SELFPAY ==
--- NOTE | 2017-10-07 13:59 | CT_ITS ---
STUDY: CTA OF THE ABDOMINAL AORTA REASON FOR EXAM: Male, 67 years old. Hypertension. RADIATION DOSAGE (If Supplied By Facility): CTDIvol = ( 28.26 ) mGy, DLP = ( 785.31 ) mGycm TECHNIQUE: Axial CT angiography multi-detector data acquisition was obtained from the lower thoracic aorta to the level of the proximal common iliac arteries following intravenous administration of 100ml ml of Isovue 370 contrast. Axial images and MIP images were reconstructed from the axial data set. Post-processing of the angiographic images was performed, with multiplanar reformation reconstruction. Individualized dose optimization techniques were used for this CT. TECHNICAL QUALITY: Good COMPARISON: None. Descriptors of Narrowing: None (0%) Mild (< 50%) Moderate (50-70%) Severe (70-90%) Subtotal/Total Occlusion (90-100%) Non-Evaluable (technically non-diagnostic FINDINGS: Abdominal aorta: Tortuous abdominal aorta with mild atherosclerotic calcifications distally without significant stenosis. Celiac and superior mesenteric arteries: Mild eccentric atherosclerotic calcifications. No significant stenosis. Inferior mesenteric artery: No demonstrated narrowing. Right renal artery(arteries): Mild eccentric atherosclerotic calcifications near its origin without significant stenosis. Left renal artery(arteries): Mild calcifications at the origin of the left renal artery without significant stenosis. Right common iliac artery: Minimal atherosclerotic calcifications. No significant stenosis. Right external iliac artery: Not included on this exam. Right internal iliac artery: Not included on this exam. Left common iliac artery: Mild atherosclerotic calcifications at its origin without significant stenosis. Left external iliac artery: Not included on this exam. Left internal iliac artery: Not included on this exam. There is low-density lesion in the right lobe of the liver near the dome measuring about 2.1 cm and another lesion in the peripheral aspect of the left lobe measuring about 1.7 cm with attenuation value suggestive of cysts. There is a cyst in the right kidney measuring about 2 cm. The colon is not well-distended. There is diverticulosis of the transverse colon without evidence of acute diverticulitis. There is a small umbilical hernia containing fat. CT/CTA Abdomen W/WO Contrast IMPRESSION: Mild atherosclerotic calcifications at the origin of the renal arteries bilaterally without significant stenosis. Liver and right renal cysts. Diverticulosis without evidence of acute diverticulitis.. Electronically Signed: Quincy Sanabria MD at 9:34 EDT Tel , Service support ,
--- NOTE | 2017-10-07 14:45 | DT_ITS ---
This patient was seen during an EMR downtime October 07, 2017 - October 14, 2017. This patient may have a combination of paper and electronic documentation or all paper documentation. All documentation is viewable within the e-chart portion of [employer] for each patient visit.
[2017-10-20 14:41] LABS: CREATININE FINGERSTICK 0.84 mg/dL (0.70-1.30)
== END ==
PROVIDERS: Family Provider Family Medicine; PCP Family Medicine; Visit Provider Internal Medicine Cardiovascular Disease
DX: I70.1 Atherosclerosis of renal artery (principal); N28.1 Cyst of kidney, acquired; K57.90 Diverticulosis of intestine, part unspecified, without perforation or abscess without bleeding; I10 Essential (primary) hypertension
CPT/HCPCS: 74175

== ENCOUNTER → 2017-12-26 10:53 | Outpatient (CLI) | payer MEDICARE, OTHER, SELFPAY ==
[2017-12-26 12:03] LABS: Absolute Lymphocyte Count 1.71 X10^3/ul (0.83-4.51); Absolute Neutrophil Count 3.7 X10^3/uL (2.0-7.7); Basophil# 0.06 X10^3/uL; Basophil% 0.9 % (0-1); Eosinophils% 4.6 % (0-5); Hematocrit 41.5 % (40-54); Hemoglobin 13.8 g/dl (13.0-16.5); Lymphocyte # 1.71 X10^3/ul (4.0); Lymphocyte % 26.5 % (19-41); Mean Corp Hgb Conc 33.3 g/gl (32-36); Mean Corpuscular Hgb 30.5 pg (27.0-32.0); Mean Corpuscular Volume 91.6 fL (80-94); Mean Platelet Vol. 10.7 fl (6.2-12.0); Monocyte# 0.68 X10^3/uL; Monocyte% 10.5 % (0-10); Neutrophil % 57.3 % (47-70); Platelet Count 292 K/mm3 (150-450); RBC Distribution Width CV 13.8 % (11.6-14.6); RBC Distribution Width SD 45.6 fl (35.1-43.9); Red Blood Count 4.53 M/mm3 (4.6-6.2); White Blood Count 6.5 K/mm3 (4.4-11.0)
[2017-12-26 12:09] LABS: POSITIVE COUNT NO; POSITIVE DIFFERENTIAL NO; POSITIVE MORPHOLOGY NO
[2017-12-26 12:27] LABS: Cholesterol 103 mg/dL (200); High Density Lipoprotein 31 mg/dL; T4 Free Direct 1.02 ng/dL (0.76-1.46); Thyroid Stim Hormone (TSH) 3.18 uIU/mL (0.358-3.74); Triglycerides 106 mg/dL; Very Low Density Lipoprotein 21 mg/dL (5-40)
== END ==
PROVIDERS: Family Provider Family Medicine; PCP Family Medicine; Visit Provider Family Medicine
DX: I10 Essential (primary) hypertension (principal); K21.9 Gastro-esophageal reflux disease without esophagitis; E78.5 Hyperlipidemia, unspecified; I51.7 Cardiomegaly; E55.9 Vitamin D deficiency, unspecified; E01.0 Iodine-deficiency related diffuse (endemic) goiter
CPT/HCPCS: 36415; 80061; 84439; 84443; 85025

== ENCOUNTER → 2018-04-14 10:26 | Outpatient (CLI) | payer MEDICARE, OTHER, SELFPAY ==
[2017-07-10 13:16] VITALS: BMI 31.4
[2018-04-14 11:37] LABS: Hematocrit 42.9 % (40-54); Hemoglobin 13.9 g/dl (13.0-16.5); Mean Corp Hgb Conc 32.4 g/gl (32-36); Mean Corpuscular Hgb 29.8 pg (27.0-32.0); Mean Corpuscular Volume 92.1 fL (80-94); Mean Platelet Vol. 10.5 fl (6.2-12.0); Platelet Count 278 K/mm3 (150-450); RBC Distribution Width CV 13.6 % (11.6-14.6); RBC Distribution Width SD 45.3 fl (35.1-43.9); Red Blood Count 4.66 M/mm3 (4.6-6.2)
[2018-04-14 11:43] LABS: Scan Indicated on CBC? Y/N NO
[2018-04-14 11:59] LABS: Vitamin D,25 Hydroxy 63.5 ng/mL (29.95-100.01)
[2018-04-14 12:05] LABS: AST(SGOT) 17 U/L (15-37); Alanine Aminotransfer ALT/SGPT 28 U/L (16-61); Albumin, Serum 3.4 g/dL (3.2-5.0); Alkaline Phosphatase 73 U/L (45-117); Anion Gap 8 (5-15); BUN 23 mg/dL (7-18); BUN/Creat Ratio 22.8 RATIO (10-20); Bilirubin, Direct 0.22 mg/dL (0.00-0.30); Calcium,Total 8.5 mg/dL (8.5-10.1); Chloride 105 mmol/L (98-107); Cholesterol 111 mg/dL (200); Creatinine, Serum 1.01 mg/dL (0.70-1.30); EST Glomerular Filtration Rate 78 mL/min (>60); Est Glom Filt Rate - Afr Amer 95 mL/min (>60); Globulin 3.2 g/dL (2.2-4.2); Glucose 95 mg/dL (74-106); High Density Lipoprotein 37 mg/dL; Magnesium 2.2 mg/dL (1.6-2.6); Phosphorus 3.5 mg/dL (2.5-4.9); Potassium 3.9 mmol/L (3.5-5.1); Protein, Total 6.6 g/dL (6.4-8.2); Sodium Level 143 mmol/L (136-145); Triglycerides 57 mg/dL; Very Low Density Lipoprotein 11 mg/dL (5-40)
[2018-04-14 13:38] LABS: White Blood Count 6.8 K/mm3 (4.4-11.0)
== END ==
PROVIDERS: Family Provider Family Medicine; PCP Family Medicine; Referring Provider Nurse Practitioner Acute Care; Visit Provider Nurse Practitioner Acute Care
DX: E55.9 Vitamin D deficiency, unspecified (principal); Z86.73 Personal history of transient ischemic attack (TIA), and cerebral infarction without residual deficits; Z79.899 Other long term (current) drug therapy
CPT/HCPCS: 36415; 80048; 80061; 80076; 82306; 83036; 83735; 84100; 85027

== ENCOUNTER → 2018-12-05 13:21 | Outpatient (CLI) | payer MEDICARE, OTHER, SELFPAY ==
[2018-12-05 15:44] LABS: Absolute Neutrophil Count 3.9 X10^3/uL (2.0-7.7); Basophil# 0.09 X10^3/uL; Basophil% 1.3 % (0-1); Eosinophil# 0.38 X10^3/uL; Eosinophils% 5.4 % (0-5); Hematocrit 42.4 % (40-54); Hemoglobin 14.1 g/dL (13.0-16.5); Lymphocyte % 28.2 % (19-41); Mean Corp Hgb Conc 33.3 g/dL (32-36); Mean Corpuscular Hgb 30.3 pg (27.0-32.0); Mean Corpuscular Volume 91.2 fL (80-94); Mean Platelet Vol. 10.7 fl (6.2-12.0); Monocyte# 0.71 X10^3/uL; NRBC Flagged by Analyzer 0 % (0-5); Neutrophil # 3.91 X10^3/uL (2.7-7.7); Platelet Count 270 K/mm3 (150-450); RBC Distribution Width CV 13.3 % (11.6-14.6); RBC Distribution Width SD 44.4 fl (35.1-43.9); Red Blood Count 4.65 M/mm3 (4.6-6.2); White Blood Count 7.1 K/mm3 (4.4-11.0)
[2018-12-05 16:00] LABS: ALB/GLOB Ratio 1.1 RATIO (0.9-2.4); AST(SGOT) 18 U/L (15-37); Alanine Aminotransfer ALT/SGPT 30 U/L (16-61); Albumin, Serum 3.7 g/dL (3.2-5.0); Alkaline Phosphatase 69 U/L (45-117); Anion Gap 9 (5-15); BUN 27 mg/dL (7-18); BUN/Creat Ratio 29.8 RATIO (10-20); Calcium,Total 8.6 mg/dL (8.5-10.1); Chloride 108 mmol/L (98-107); Cholesterol 118 mg/dL (200); EST Glomerular Filtration Rate 89 mL/min (>60); Est Glom Filt Rate - Afr Amer 107 mL/min (>60); Globulin 3.3 g/dL (2.2-4.2); Glucose 99 mg/dL (74-106); Hemoglobin A1c 5.7 % (4.2-6.3); High Density Lipoprotein 39 mg/dL; Potassium 3.7 mmol/L (3.5-5.1); Sodium Level 142 mmol/L (136-145); Triglycerides 62 mg/dL; Very Low Density Lipoprotein 12 mg/dL (5-40)
[2018-12-05 16:03] LABS: Vitamin D,25 Hydroxy 62.9 ng/mL (29.95-100.01)
== END ==
PROVIDERS: Family Provider Family Medicine; PCP Family Medicine; Visit Provider Family Medicine
DX: I10 Essential (primary) hypertension (principal); E78.5 Hyperlipidemia, unspecified; E55.9 Vitamin D deficiency, unspecified; R73.03 Prediabetes; I73.9 Peripheral vascular disease, unspecified; R79.0 Abnormal level of blood mineral; E01.0 Iodine-deficiency related diffuse (endemic) goiter
CPT/HCPCS: 36415; 80053; 80061; 82306; 83036; 83735; 85025

== ENCOUNTER → 2019-06-22 08:47 | Outpatient (CLI) | payer MEDICARE, OTHER, SELFPAY ==
[2017-07-10 13:16] VITALS: BMI 31.4
[2019-06-22 12:40] LABS: Absolute Lymphocyte Count 2.29 X10^3/uL (0.83-4.51); Absolute Neutrophil Count 3.6 X10^3/uL (2.0-7.7); Basophil# 0.06 X10^3/uL; Basophil% 0.9 % (0-1); Eosinophil# 0.38 X10^3/uL; Eosinophils% 5.4 % (0-5); Hematocrit 43.2 % (40-54); Hemoglobin 14.3 g/dL (13.0-16.5); Lymphocyte # 2.29 X10^3/ul (4.0); Lymphocyte % 32.6 % (19-41); Mean Corp Hgb Conc 33.1 g/dL (32-36); Mean Corpuscular Hgb 30.8 pg (27.0-32.0); Mean Corpuscular Volume 92.9 fL (80-94); Mean Platelet Vol. 10.7 fl (6.2-12.0); Monocyte# 0.73 X10^3/uL; Monocyte% 10.4 % (0-10); NRBC Flagged by Analyzer 0 % (0-5); Neutrophil # 3.55 X10^3/uL (2.7-7.7); Neutrophil % 50.4 % (47-70); Platelet Count 282 K/mm3 (150-450); RBC Distribution Width CV 13.5 % (11.6-14.6); RBC Distribution Width SD 46.2 fl (35.1-43.9); Red Blood Count 4.65 M/mm3 (4.6-6.2)
[2019-06-22 13:04] LABS: Hemoglobin A1c 5.8 % (4.2-6.3)
[2019-06-22 13:21] LABS: ALB/GLOB Ratio 1.2 RATIO (0.9-2.4); AST(SGOT) 20 U/L (15-37); Alanine Aminotransfer ALT/SGPT 35 U/L (16-61); Albumin, Serum 3.8 g/dL (3.2-5.0); Alkaline Phosphatase 78 U/L (45-117); Anion Gap 8 (5-15); BUN 15 mg/dL (7-18); BUN/Creat Ratio 16.3 RATIO (10-20); Calcium,Total 8.7 mg/dL (8.5-10.1); Chloride 105 mmol/L (98-107); Cholesterol 125 mg/dL (200); Creatinine, Serum 0.92 mg/dL (0.70-1.30); EST Glomerular Filtration Rate 87 mL/min (>60); Est Glom Filt Rate - Afr Amer 105 mL/min (>60); Globulin 3.2 g/dL (2.2-4.2); Glucose 96 mg/dL (74-106); High Density Lipoprotein 41 mg/dL; PSA,Total - Annual Screen 3.37 ng/mL (0.00-4.00); Potassium 3.5 mmol/L (3.5-5.1); Sodium Level 140 mmol/L (136-145); Triglycerides 67 mg/dL; Very Low Density Lipoprotein 13 mg/dL (5-40)
== END ==
PROVIDERS: Family Provider Family Medicine; PCP Family Medicine; Visit Provider Family Medicine
DX: I10 Essential (primary) hypertension (principal); E78.5 Hyperlipidemia, unspecified; R73.03 Prediabetes; Z12.5 Encounter for screening for malignant neoplasm of prostate
CPT/HCPCS: 36415; 80053; 80061; 83036; 84153; 85025; G0103

== ENCOUNTER → 2019-12-22 11:09 | Outpatient (CLI) | payer MEDICARE, OTHER, SELFPAY ==
[2017-07-10 13:16] VITALS: BMI 31.4
[2019-12-22 15:27] LABS: Absolute Lymphocyte Count 1.73 X10^3/uL (0.83-4.51); Absolute Neutrophil Count 4.1 X10^3/uL (2.0-7.7); Basophil# 0.07 X10^3/uL; Eosinophil# 0.45 X10^3/uL; Eosinophils% 6.3 % (0-5); Hematocrit 43.4 % (40-54); Hemoglobin 14.4 g/dL (13.0-16.5); Lymphocyte # 1.73 X10^3/ul (4.0); Lymphocyte % 24.4 % (19-41); Mean Corp Hgb Conc 33.2 g/dL (32-36); Mean Corpuscular Hgb 30.6 pg (27.0-32.0); Mean Corpuscular Volume 92.3 fL (80-94); Mean Platelet Vol. 11.1 fl (6.2-12.0); Monocyte# 0.69 X10^3/uL; Monocyte% 9.7 % (0-10); NRBC Flagged by Analyzer 0 % (0-5); Neutrophil # 4.13 X10^3/uL (2.7-7.7); Neutrophil % 58.3 % (47-70); Platelet Count 291 K/mm3 (150-450); RBC Distribution Width CV 13.1 % (11.6-14.6); RBC Distribution Width SD 44.5 fl (35.1-43.9); White Blood Count 7.1 K/mm3 (4.4-11.0)
[2019-12-22 15:45] LABS: ALB/GLOB Ratio 1.1 RATIO (0.9-2.4); AST(SGOT) 18 U/L (15-37); Alanine Aminotransfer ALT/SGPT 31 U/L (16-61); Albumin, Serum 3.6 g/dL (3.2-5.0); Alkaline Phosphatase 76 U/L (45-117); Anion Gap 7 (5-15); BUN 14 mg/dL (7-18); BUN/Creat Ratio 16.1 RATIO (10-20); Calcium,Total 8.4 mg/dL (8.5-10.1); Chloride 105 mmol/L (98-107); Cholesterol 123 mg/dL (200); Creatinine, Serum 0.87 mg/dL (0.70-1.30); EST Glomerular Filtration Rate 93 mL/min (>60); Est Glom Filt Rate - Afr Amer 112 mL/min (>60); Globulin 3.3 g/dL (2.2-4.2); Glucose 92 mg/dL (74-106); High Density Lipoprotein 35 mg/dL; Potassium 3.4 mmol/L (3.5-5.1); Protein, Total 6.9 g/dL (6.4-8.2); Sodium Level 140 mmol/L (136-145); Triglycerides 69 mg/dL; Very Low Density Lipoprotein 14 mg/dL (5-40)
[2019-12-22 15:47] LABS: Hemoglobin A1c 5.7 % (3.8-5.6)
== END ==
PROVIDERS: PCP Family Medicine; Visit Provider Family Medicine
DX: I10 Essential (primary) hypertension (principal); E78.5 Hyperlipidemia, unspecified; R73.01 Impaired fasting glucose; Z51.81 Encounter for therapeutic drug level monitoring
CPT/HCPCS: 36415; 80053; 80061; 83036; 85025

== ENCOUNTER → 2020-08-16 13:49 | Outpatient (CLI) | payer MEDICARE, OTHER, SELFPAY ==
[2017-07-10 13:16] VITALS: BMI 31.4
[2020-08-16 15:36] LABS: Absolute Lymphocyte Count 1.82 X10^3/uL (0.83-4.51); Absolute Neutrophil Count 4.7 X10^3/uL (2.0-7.7); Basophil# 0.08 X10^3/uL; Eosinophil# 0.39 X10^3/uL; Hematocrit 45.6 % (40-54); Hemoglobin 14.8 g/dL (13.0-16.5); Lymphocyte # 1.82 X10^3/ul (4.0); Lymphocyte % 23.4 % (19-41); Mean Corp Hgb Conc 32.5 g/dL (32-36); Mean Corpuscular Hgb 29.9 pg (27.0-32.0); Mean Corpuscular Volume 92.1 fL (80-94); Mean Platelet Vol. 10.7 fl (6.2-12.0); Monocyte# 0.72 X10^3/uL; Monocyte% 9.3 % (0-10); NRBC Flagged by Analyzer 0 % (0-5); Neutrophil # 4.73 X10^3/uL (2.7-7.7); Neutrophil % 60.9 % (47-70); Platelet Count 292 K/mm3 (150-450); RBC Distribution Width CV 13.6 % (11.6-14.6); Red Blood Count 4.95 M/mm3 (4.6-6.2); White Blood Count 7.8 K/mm3 (4.4-11.0)
[2020-08-16 15:55] LABS: Hemoglobin A1c 5.6 % (3.8-5.6)
[2020-08-16 16:04] LABS: ALB/GLOB Ratio 1.1 RATIO (0.9-2.4); AST(SGOT) 18 U/L (15-37); Alanine Aminotransfer ALT/SGPT 30 U/L (16-61); Albumin, Serum 3.6 g/dL (3.2-5.0); Alkaline Phosphatase 81 U/L (45-117); Anion Gap 5 (5-15); BUN 20 mg/dL (7-18); BUN/Creat Ratio 21.3 RATIO (10-20); Calcium,Total 8.7 mg/dL (8.5-10.1); Chloride 106 mmol/L (98-107); Cholesterol 127 mg/dL (200); Creatinine, Serum 0.94 mg/dL (0.70-1.30); EST Glomerular Filtration Rate 84 mL/min (>60); Est Glom Filt Rate - Afr Amer 102 mL/min (>60); Globulin 3.4 g/dL (2.2-4.2); Glucose 90 mg/dL (74-106); High Density Lipoprotein 39 mg/dL; PSA,Total - Annual Screen 3.99 ng/mL (0.00-4.00); Potassium 3.4 mmol/L (3.5-5.1); Sodium Level 140 mmol/L (136-145); Triglycerides 71 mg/dL; Very Low Density Lipoprotein 14 mg/dL (5-40)
== END ==
PROVIDERS: PCP Family Medicine; Referring Provider Family Medicine; Visit Provider Family Medicine
DX: I10 Essential (primary) hypertension (principal); E78.5 Hyperlipidemia, unspecified; E55.9 Vitamin D deficiency, unspecified; R73.01 Impaired fasting glucose; Z12.5 Encounter for screening for malignant neoplasm of prostate
CPT/HCPCS: 36415; 80053; 80061; 82306; 83036; 84153; 85025; G0103

== ENCOUNTER → 2021-08-29 | Outpatient (CLI) | payer MEDICARE, OTHER, SELFPAY ==
[2021-08-29 15:24] LABS: Absolute Lymphocyte Count 1.81 X10^3/uL (0.83-4.51); Absolute Neutrophil Count 4.8 X10^3/uL (2.0-7.7); Basophil# 0.05 X10^3/uL; Basophil% 0.6 % (0-1); Eosinophil# 0.36 X10^3/uL; Eosinophils% 4.6 % (0-5); Hematocrit 43.7 % (40-54); Hemoglobin 14.5 g/dL (13.0-16.5); Lymphocyte # 1.81 X10^3/ul (0.83-4.51); Lymphocyte % 23.3 % (19-41); Mean Corp Hgb Conc 33.2 g/dL (32-36); Mean Corpuscular Hgb 30.6 pg (27.0-32.0); Mean Corpuscular Volume 92.2 fL (80-94); Mean Platelet Vol. 10.9 fl (6.2-12.0); Monocyte# 0.69 X10^3/uL; Monocyte% 8.9 % (0-10); NRBC Flagged by Analyzer 0 % (0-5); Neutrophil # 4.83 X10^3/uL (2.7-7.7); Neutrophil % 62.3 % (47-70); Platelet Count 315 K/mm3 (150-450); RBC Distribution Width CV 13.5 % (11.6-14.6); RBC Distribution Width SD 46.2 fl (35.1-43.9); Red Blood Count 4.74 M/mm3 (4.6-6.2); White Blood Count 7.8 K/mm3 (4.4-11.0)
[2021-08-29 15:45] LABS: Hemoglobin A1c 5.6 % (3.8-5.6)
[2021-08-29 16:09] LABS: ALB/GLOB Ratio 1.1 RATIO (0.9-2.4); AST(SGOT) 16 U/L (15-37); Alanine Aminotransfer ALT/SGPT 28 U/L (16-61); Albumin, Serum 3.5 g/dL (3.2-5.0); Alkaline Phosphatase 85 U/L (45-117); Anion Gap 6 (5-15); BUN 20 mg/dL (7-18); BUN/Creat Ratio 26.5 RATIO (10-20); Calcium,Total 8.6 mg/dL (8.5-10.1); Chloride 111 mmol/L (98-107); Cholesterol 116 mg/dL (200); Creatinine, Serum 0.76 mg/dL (0.70-1.30); EST Glomerular Filtration Rate 108 mL/min (>60); Est Glom Filt Rate - Afr Amer 131 mL/min (>60); Globulin 3.2 g/dL (2.2-4.2); Glucose 103 mg/dL (74-106); High Density Lipoprotein 36 mg/dL; Potassium 3.6 mmol/L (3.5-5.1); Protein, Total 6.7 g/dL (6.4-8.2); Sodium Level 143 mmol/L (136-145); Triglycerides 69 mg/dL; Very Low Density Lipoprotein 14 mg/dL (5-40)
== END | disposition home or self-care (01) ==
LOC: MTLAB 14:02
PROVIDERS: PCP Family Medicine; Referring Provider Family Medicine; Visit Provider Family Medicine
DX: I10 Essential (primary) hypertension (principal); R73.03 Prediabetes; E78.5 Hyperlipidemia, unspecified; Z51.81 Encounter for therapeutic drug level monitoring
CPT/HCPCS: 36415; 80053; 80061; 83036; 85025

== ENCOUNTER → 2022-10-02 | Outpatient (CLI) | payer MEDICARE, OTHER, SELFPAY ==
[2022-10-02 12:38] LABS: Absolute Neutrophil Count 4.6 X10^3/uL (2.0-7.7); Basophil# 0.08 X10^3/uL; Eosinophil# 0.32 X10^3/uL; Hematocrit 44.6 % (40-54); Hemoglobin 14.8 g/dL (13.0-16.5); Lymphocyte % 28.5 % (19-41); Mean Corp Hgb Conc 33.2 g/dL (32-36); Mean Corpuscular Hgb 30.6 pg (27.0-32.0); Mean Corpuscular Volume 92.1 fL (80-94); Mean Platelet Vol. 10.8 fl (6.2-12.0); Monocyte# 0.75 X10^3/uL; Monocyte% 9.3 % (0-10); NRBC Flagged by Analyzer 0 % (0-5); Neutrophil # 4.59 X10^3/uL (2.7-7.7); Platelet Count 283 K/mm3 (150-450); RBC Distribution Width CV 13.3 % (11.6-14.6); RBC Distribution Width SD 45.1 fl (35.1-43.9); Red Blood Count 4.84 M/mm3 (4.6-6.2); White Blood Count 8.1 K/mm3 (4.4-11.0)
[2022-10-02 13:01] LABS: ALB/GLOB Ratio 1.2 RATIO (0.9-2.4); AST(SGOT) 13 U/L (15-37); Alanine Aminotransfer ALT/SGPT 27 U/L (16-61); Albumin, Serum 3.8 g/dL (3.2-5.0); Alkaline Phosphatase 74 U/L (45-117); Anion Gap 8 (5-15); BUN 18 mg/dL (7-18); BUN/Creat Ratio 18.2 RATIO (10-20); Calcium,Total 8.8 mg/dL (8.5-10.1); Chloride 109 mmol/L (98-107); Cholesterol 126 mg/dL (200); Creatinine, Serum 0.99 mg/dL (0.70-1.30); EST Glomerular Filtration Rate 79 mL/min (>60); Est Glom Filt Rate - Afr Amer 95 mL/min (>60); Globulin 3.2 g/dL (2.2-4.2); Glucose 110 mg/dL (74-106); High Density Lipoprotein 33 mg/dL; PSA,Total - Annual Screen 4.25 ng/mL (0.00-4.00); Potassium 3.6 mmol/L (3.5-5.1); Sodium Level 141 mmol/L (136-145); Triglycerides 83 mg/dL; Very Low Density Lipoprotein 17 mg/dL (5-40)
[2022-10-02 14:02] LABS: Hemoglobin A1c 5.6 % (3.8-5.6)
== END | disposition home or self-care (01) ==
LOC: MTLAB 10:47
PROVIDERS: PCP Family Medicine; Referring Provider Family Medicine; Visit Provider Family Medicine
DX: E78.5 Hyperlipidemia, unspecified (principal); I10 Essential (primary) hypertension; R73.01 Impaired fasting glucose; Z12.5 Encounter for screening for malignant neoplasm of prostate
CPT/HCPCS: 36415; 80053; 80061; 83036; 84153; 85025; G0103

== ENCOUNTER → 2022-12-12 | Outpatient (CLI) | payer MEDICARE, OTHER, SELFPAY ==
[2022-12-12 18:40] LABS: T4 Free Direct 0.99 ng/dL (0.76-1.46); Thyroid Stim Hormone (TSH) 2.22 uIU/mL (0.358-3.74)
== END | disposition home or self-care (01) ==
LOC: BFHLAB 14:02
PROVIDERS: PCP Family Medicine; Referring Provider Family Medicine; Visit Provider Family Medicine
DX: R53.83 Other fatigue (principal); I10 Essential (primary) hypertension; E78.5 Hyperlipidemia, unspecified; R73.01 Impaired fasting glucose
CPT/HCPCS: 36415; 84439; 84443

== ENCOUNTER → 2023-10-08 | Outpatient (CLI) | payer MEDICARE, OTHER, SELFPAY ==
[2023-10-08 12:30] LABS: Absolute Lymphocyte Count 2.22 X10^3/uL (0.83-4.51); Absolute Neutrophil Count 4.7 X10^3/uL (2.0-7.7); Basophil# 0.08 X10^3/uL; Eosinophil# 0.43 X10^3/uL; Eosinophils% 5.2 % (0-5); Hematocrit 44.3 % (40-54); Hemoglobin 14.4 g/dL (13.0-16.5); Lymphocyte # 2.22 X10^3/ul (0.83-4.51); Lymphocyte % 27.1 % (19-41); Mean Corp Hgb Conc 32.5 g/dL (32-36); Mean Corpuscular Hgb 30.4 pg (27.0-32.0); Mean Corpuscular Volume 93.7 fL (80-94); Mean Platelet Vol. 11.2 fl (6.2-12.0); Monocyte# 0.71 X10^3/uL; Monocyte% 8.7 % (0-10); NRBC Flagged by Analyzer 0 % (0-5); Neutrophil # 4.72 X10^3/uL (2.7-7.7); Neutrophil % 57.5 % (47-70); Platelet Count 307 K/mm3 (150-450); RBC Distribution Width CV 13.2 % (11.6-14.6); RBC Distribution Width SD 45.3 fl (35.1-43.9); Red Blood Count 4.73 M/mm3 (4.6-6.2); White Blood Count 8.2 K/mm3 (4.4-11.0)
[2023-10-08 12:45] LABS: Hemoglobin A1c 5.5 % (3.8-5.6)
[2023-10-08 13:21] LABS: AST(SGOT) 14 U/L (15-37); Alanine Aminotransfer ALT/SGPT 24 U/L (16-61); Albumin, Serum 3.6 g/dL (3.2-5.0); Alkaline Phosphatase 101 U/L (45-117); Anion Gap 7 (5-15); BUN 19 mg/dL (7-18); BUN/Creat Ratio 19.6 RATIO (10-20); Calcium,Total 8.8 mg/dL (8.5-10.1); Chloride 108 mmol/L (98-107); Cholesterol 133 mg/dL (200); Creatinine, Serum 0.97 mg/dL (0.70-1.30); EST Glomerular Filtration Rate 80 mL/min (>60); Est Glom Filt Rate - Afr Amer 97 mL/min (>60); Globulin 3.6 g/dL (2.2-4.2); Glucose 97 mg/dL (74-106); High Density Lipoprotein 40 mg/dL; Potassium 4.1 mmol/L (3.5-5.1); Protein, Total 7.2 g/dL (6.4-8.2); Sodium Level 140 mmol/L (136-145); Triglycerides 65 mg/dL; Very Low Density Lipoprotein 13 mg/dL (5-40)
== END | disposition home or self-care (01) ==
LOC: BFHLAB 09:06
PROVIDERS: PCP Family Medicine; Referring Provider Family Medicine; Visit Provider Family Medicine
DX: I10 Essential (primary) hypertension (principal); E78.5 Hyperlipidemia, unspecified; R73.01 Impaired fasting glucose
CPT/HCPCS: 36415; 80053; 80061; 83036; 85025

== ENCOUNTER → 2024-12-29 | Outpatient (CLI) | payer MEDICARE, OTHER, SELFPAY ==
[2024-12-29 15:19] LABS: Hematocrit 43.0 % (40-54); Hemoglobin 14.5 g/dL (13.0-16.5); Immature Granulocytes Count 0.020 X10^3/uL (0.0-0.0); Mean Corp Hgb Conc 33.7 g/dL (32-36); Mean Corpuscular Volume 90.5 fL (80-94); Mean Platelet Vol. 11.0 fl (6.2-12.0); NRBC Flagged by Analyzer 0 % (0-5); Platelet Count 291 K/mm3 (150-450); RBC Distribution Width CV 13.0 % (11.6-14.6); RBC Distribution Width SD 42.9 fl (35.1-43.9); Red Blood Count 4.75 M/mm3 (4.6-6.2); White Blood Count 7.2 K/mm3 (4.4-11.0)
[2024-12-29 15:48] LABS: AST(SGOT) 15 U/L (<=37); Alanine Aminotransfer ALT/SGPT 15 U/L (<=46); Albumin, Serum 3.9 g/dL (3.4-4.8); Alkaline Phosphatase 75 U/L (40-129); Anion Gap 13 (5-15); BUN 18 mg/dL (4-19); BUN/Creat Ratio 18.7 RATIO (10-20); Calcium,Total 9.0 mg/dL (7.6-11.0); Carbon Dioxide 21.2 mmol/L (21.0-32.0); Chloride 108 mmol/L (98-108); Cholesterol 123 mg/dL (<=200); Globulin 2.7 g/dL (2.2-4.2); Glucose 93 mg/dL (70-99); Low Density Lipoprotein Calc. 74 mg/dL; PSA,Total - Annual Screen 1.54 ng/mL (0.02-4.00); Potassium 3.7 mmol/L (3.3-5.1); Triglycerides 85 mg/dL; Very Low Density Lipoprotein 17 mg/dL (5-40); cholesterol:hdl ratio screen 3.89
== END | disposition home or self-care (01) ==
PROVIDERS: PCP Family Medicine; Referring Provider Family Medicine; Visit Provider Family Medicine
DX: I10 Essential (primary) hypertension (principal); E78.5 Hyperlipidemia, unspecified; R73.01 Impaired fasting glucose; Z12.5 Encounter for screening for malignant neoplasm of prostate
CPT/HCPCS: 36415; 80053; 80061; 83036; 84153; 85025; G0103